=== PATIENT | male | born 1945 | race Caucasian/White ===

== ENCOUNTER 2018-05-27 13:58 | Inpatient (IN) | payer MEDICARE, OTHER | END 2018-06-02 15:30 | disposition designated cancer center or children's hospital (05) | LOC: ER 13:58 → 4TH 15:17 | DX: A41.89 Other specified sepsis (principal); N39.0 Urinary tract infection, site not specified; B96.4 Proteus (mirabilis) (morganii) as the cause of diseases classified elsewhere; I12.0 Hypertensive chronic kidney disease with stage 5 chronic kidney disease or end stage renal disease; N18.6 End stage renal disease; N17.9 Acute kidney failure, unspecified; G20 Parkinson's disease; Z66 Do not resuscitate; D64.9 Anemia, unspecified; E11.9 Type 2 diabetes mellitus without complications; M19.91 Primary osteoarthritis, unspecified site ==

== ENCOUNTER 2018-06-27 12:23 | Inpatient (IN) | payer MEDICARE ==
[~2018-06-27] VITALS: Ht 185.4 cm; Wt 97.5 kg
[~2018-06-27 12:23] MED LIST: ACET325T49 PO; ALLO100T PO; AMAN100T PO; AMLO10TA7 PO; ASCO500C17 PO; ASPI-586 PO; CARB1CAP PO; CHOL10003 PO; DARB25VI SQ; FURO20TA4 PO; GBPN600T PO; HYDR12.56 PO; LABE300T2 PO; MINO2.5T PO; OMEP20CA12 PO; OMEP20TA7 PO; PIOG45TA65 PO; POLY17PO6 PO; SIMV20TA3 PO; SODI650T PO; SPIR50TA4 PO; TRAM50TA2 PO
[2018-06-27 13:05] VITALS: BP 168/90
[2018-06-27] MEDS ORDERED: morphine INJ 4 MG/ML 1 ML (VIAL/SYRINGE) IVP PRN (13:45)
[2018-06-27] MEDS ORDERED: CATHETER FLUSH 10 ML SYR IV PRN (14:00)
--- NOTE | 2018-06-27 14:08 | NUR ---
ROSALIE ALVAREZ I admitted to room 407-1, with an admitting diagnosis of pelvic fx, on 06/27/18 from via cart, accompanied by EMS.ROSALIE ALVAREZ I introduced to surroundings, call light, bed controls, phone, TV, temperature control, lights, meal times, smoking policy, visitor policy, side rail policy, bathrooms and showers. Patient Rights given to patient in the handbook. ROSALIE ALVAREZ I verbalizes understanding that [facility] is not responsible for the loss or damage to any personal effects or valuables that are kept in the patients posession during their hospitalization. The following Patient Care Plans were discussed with the pt: Discharge Planning. ROSALIE ALVAREZ I verbalizes understanding of Interdisciplinary Patient Education. Patient and/or family were informed about the Rapid Response Team and its purpose.
--- NOTE | 2018-06-27 14:23 | NUR ---
UPDATED MED REC WITH MAR FROM [facility]. PATIENT HAS NOT HAD ANY MEDS TODAY, HE REFUSED THEM ALL.
[2018-06-27] MEDS ORDERED: MILK OF MAGNESIA 400 MG/5 ML 30 ML UDC PO PRN (14:45)
[2018-06-27] MEDS ORDERED: ONDANSETRON 4 MG/2 ML (SDV) Z0FRAN IV PRN (14:45)
[2018-06-27] MEDS ORDERED: ANTACID SUSP 30 ML UDC (MYLANTA) PO PRN (14:45)
--- NOTE | 2018-06-27 15:19 | History & Physical-Hospitalist ---
History of Present Illness HPI/Chief Complaint Pt is a 73yoCM known to me from recent admission who was admitted from outside hospital for management of hip fracture. He is confused and unable to provide any history. Family is at bedside who states he fell on 06/25 and was seen in the ER where there was not acute fracture found but a possible old pubis ramus fracture. He was discharged home and continued to worsen with confusion and hip pain. He was brought back to the ER today and imaging revealed an acute right acetabular fracture and an acute right pubis ramus fracture. He was also found to have constipation and an ANAI with a creatinine on 2.45 up from 1.7 when he was last here. He was transferred here for orthopedic evaluation and pain management. Source: family Date Seen 06/27/18 Time Seen by a Provider: 15:19 Attending Physician Jovanni Liao MD PCP Florentino Smith MD Referring Physician Date of Admission Jun 27, 2018 at 13:27 Home Medications & Allergies Home Medications Reviewed patient Home Medication Reconciliation performed by pharmacy medication reconciliations painting technician and/or nursing. Patients Allergies have been reviewed. Allergies Allergies Coded Allergies No Known Drug Allergies (Taxsqccnrh11/29/18) Past Vjapcts-Dmtcmv-Mvgkiz Hx Past Med/Social Hx: Reviewed Nursing Past Med/Soc Hx Patient Social History Employed/Student: retired Alcohol Use: Denies Use Recreational Drug Use: No Smoking Status: Unknown if Ever Smoked Physical Abuse Screen: No Sexual Abuse: No Recent Foreign Travel: No Contact w/other who traveled: No Recent Hopitalizations: No Recent Infectious Disease Expo: No Immunizations Up To Date Date of Pneumonia Vaccine: May 27, 2016 Date of Influenza Vaccine: Feb 17, 2018 Seasonal Allergies Seasonal Allergies: No Past Medical History Cardiac: Hypertension Neurological: Dementia, Parkinson's Disease Genitourinary: Renal Failure Endocrine: Diabetes, Non-Insulin dep History of Blood Disorders: Yes (CHRONIC AMEMIA) Family History Reviewed Nursing Family Hx No Pertinent Family Hx Review of Systems ROS-Unable to Obtain: confusion and dementia Constitutional: see HPI Physical Exam Physical Exam Vital Signs Vital Signs - First Documented 06/27/18 13:05 Temp 98.3 Pulse 71 Resp 20 B/P (MAP) 168/90 Pulse Ox 96 O2 Delivery Nasal Cannula O2 Flow Rate 2.00 Capillary Refill : Less Than 3 Seconds Height, Weight, BMI Height: 6'1.00" Weight: 215lbs. 0.0oz. 97.438318jf; 28.4 BMI Method:Stated General Appearance: Chronically ill HEENT: PERRL/EOMI, Moist Mucous Membranes Neck: Non Tender, Supple Respiratory: Lungs Clear, No Respiratory Distress Cardiovascular: Regular Rate, Rhythm, No Murmur Gastrointestinal: Normal Bowel Sounds, Non Tender, Soft Extremity: No Calf Tenderness, No Pedal Edema Neurologic/Psychiatric: Alert, Disoriented Skin: Normal Color, Warm/Dry Results Results/Procedures Labs Laboratory Tests 06/28/18 06:11 06/29/18 00:45 Patient resulted labs reviewed. Assessment/Plan Admission Diagnosis Right acetabular fracture Admission Status: Inpatient Order (span 2 midnights) Reason for Inpatient Admission: need orthopedic evaluation, IVF for ANAI Diagnosis/Problems Diagnosis/Problems (1) Right acetabular fracture Status: Acute Assessment & Plan: Ortho consulted appreciate recs Discussed with Dr Mcguire who states nonoperative Continue pain management NWB x6 weeks Qualifiers: Encounter type: initial encounter Sublocation of acetabulum: unspecified portion of acetabulum Fracture type: closed (2) Acute renal failure Status: Acute Assessment & Plan: acute on chronic renal failure continue IVF Hold home nephrotoxic drugs Qualifiers: Acute renal failure type: unspecified Qualified Codes: N17.9 - Acute kidney failure, unspecified (3) Parkinson disease Assessment & Plan: Resume home medications (4) Essential (primary) hypertension Assessment & Plan: Return home meds, trend Clinical Quality Measures DVT/VTE Risk/Contraindication: Risk Factor Score Per Nursin RFS Level Per Nursing on Admit: 4+=Very High JOVANNI LIAO MD Jun 27, 2018 15:19
[2018-06-27] MEDS ORDERED: ACET325T38 PO (15:22)
[2018-06-27] MEDS ORDERED: TRAM-42 PO (15:22)
[2018-06-27] MEDS ORDERED: POLY17PO6 PO (15:22)
[2018-06-27] MEDS: NS IV 1000 ML 1,000 ML IV SCH ×2 (15:29→21:09)
[2018-06-27 16:15] VITALS: BP 164/74
[2018-06-27] MEDS ORDERED: NON-FORMULARY MEDICATION 1 EA EA (Amantadine HCl (Amantadine) 100 MG) PO SCH (18:00)
--- NOTE | 2018-06-27 18:10 | CONSULTATION REPORT ---
DATE OF SERVICE: 06/27/2018 INPATIENT CONSULTATION AND REASON FOR CONSULTATION: Right acetabular fracture. HISTORY OF PRESENT ILLNESS: The patient is a 73-year-old gentleman with Parkinson's disease who was transferred from [place] when he was found to have a right acetabular fracture. He is a patient in an assisted living facility and fell on Tuesday. Radiographs at that point were obtained, which revealed an inferior pubic ramus fracture. He was unable to bear weight and then presented again to the Emergency Department today and the patient was found to have a minimally displaced right acetabular fracture, which was felt to be nonoperative. He was admitted for medical issues and likely skilled nursing placement. On exam, the patient's pulses are symmetric distally. No skin lesions noted about the right hip. He has some pain noted with internal and external rotation of the right hip with no gross deformities noted. IMPRESSION: Stable right acetabular fracture. PLAN AND RECOMMENDATIONS: Nonweightbearing right lower extremity. Okay to balance for transfers. Follow up will be with Olivier Reyes in [place] after skilled nursing placement. Thank you for the consultation Job ID: [id number] DocumentID: [id number] Dictated Date: 06/27/2018 15:42:37 Senior Librarian Date: 06/27/2018 18:09:43 Dictated By: KARMA SHAY MD
[2018-06-27] MEDS: AMANTADINE 100 MG (SYMMETREL) CAP PO SCH (18:16)
[2018-06-27 20:02] VITALS: BP 160/71
[2018-06-27] MEDS ORDERED: LABETALOL HCL 300 MG PO SCH (21:00)
[2018-06-27] MEDS ORDERED: [UNRECOGNIZED DRUG - OTHER] PO SCH (21:00)
[2018-06-27] MEDS ORDERED: CARBIDOPA PO SCH (21:00)
[2018-06-27] MEDS ORDERED: LEVODOPA PO SCH (21:00)
[2018-06-27] MEDS: GABAPENTIN 600 MG (NEURONTIN) TAB PO SCH (21:08)
[2018-06-27] MEDS: LABETALOL 200 MG (NORMODYNE) TAB PO SCH (21:08)
[2018-06-27] MEDS: SIMvastatin 20 MG (ZOCOR) TAB PO SCH (21:08)
[2018-06-27] MEDS: SINEMET CR 50/200 (CARBIDOPA/LEVODOPA SA) TAB PO SCH (21:08)
[2018-06-27] MEDS: SODIUM BICARBONATE 650 MG TABLET (NON-FORMULARY) PO SCH (21:08)
[2018-06-27] MEDS: HYDROcodone/APAP 5 MG/325 MG (LORTAB) TAB PO PRN (21:08)
[2018-06-28 00:35] VITALS: BP 160/72
[2018-06-28 04:21] VITALS: BP 157/77
[2018-06-28] MEDS: NS IV 1000 ML 1,000 ML IV SCH (06:17)
[2018-06-28 06:28] LABS: BASOPHILS % (AUTO) 0 % (0-10); EOSINOPHILS # (AUTO) 0.1 10^3/uL (0.0-0.3); EOSINOPHILS % (AUTO) 2 % (0-10); LYMPHOCYTES # (AUTO) 0.5 X 10^3 (1.0-4.0); LYMPHOCYTES % (AUTO) 12 % (12-44); MEAN CORPUSCULAR HGB CONC 32 G/DL (32-36); MEAN CORPUSCULAR VOLUME 100 FL (80-99); MEAN PLATELET VOLUME 10.2 FL (7.4-10.4); MONOCYTES # (AUTO) 0.4 X 10^3 (0.0-1.0); MONOCYTES % (AUTO) 10 % (0-12); NEUTROPHILS # (AUTO) 3.5 X 10^3 (1.8-7.8); NEUTROPHILS % (AUTO) 77 % (42-75); RED CELL DISTRIBUTION WIDTH 15.2 % (10.0-14.5)
[2018-06-28 06:45] LABS: HEMATOCRIT 25 % (40-54); MEAN CORPUSCULAR HEMOGLOBIN 32 PG (25-34); PLATELET COUNT 96 10^3/uL (130-400); WHITE BLOOD COUNT 5.1 10^3/uL (4.3-11.0)
[2018-06-28 06:53] LABS: CALCIUM 9.1 MG/DL (8.5-10.1); CREATININE SERUM 1.98 MG/DL (0.60-1.30)
[2018-06-28 08:37] VITALS: BP 179/74
[2018-06-28] MEDS: GABAPENTIN 600 MG (NEURONTIN) TAB PO SCH ×2 (08:54→21:00)
[2018-06-28] MEDS: SODIUM BICARBONATE 650 MG TABLET (NON-FORMULARY) PO SCH ×2 (08:54→21:00)
[2018-06-28] MEDS: ALLOPURINOL 100 MG (ZYLOPRIM) TAB PO SCH (08:54)
[2018-06-28] MEDS: amLODIPine 10 MG (NORVASC) TAB PO SCH (08:54)
[2018-06-28] MEDS: LABETALOL 200 MG (NORMODYNE) TAB PO SCH ×2 (08:54→21:00)
[2018-06-28] MEDS: SINEMET CR 50/200 (CARBIDOPA/LEVODOPA SA) TAB PO SCH ×2 (08:54→21:00)
[2018-06-28] MEDS: AMANTADINE 100 MG (SYMMETREL) CAP PO SCH ×2 (08:54→18:02)
[2018-06-28] MEDS: ACETAMINOPHEN 325 MG TABLET PO PRN (08:55)
[2018-06-28] MEDS ORDERED: NON-FORMULARY MEDICATION 1 EA EA (Allopurinol 100 MG) PO SCH (09:00)
[2018-06-28] MEDS ORDERED: NON-FORMULARY MEDICATION 1 EA EA (Amlodipine Besylate 10 MG) PO SCH (09:00)
--- NOTE | 2018-06-28 09:06 | Progress Note-Hospitalist ---
Subjective HPI/CC On Admission Date Seen by Provider: Jun 28, 2018 Time Seen by Provider: 09:01 Pt is a 73yoCM known to me from recent admission who was admitted from outside hospital for management of hip fracture. He is confused and unable to provide any history. Family is at bedside who states he fell on 06/25 and was seen in the ER where there was not acute fracture found but a possible old pubis ramus fracture. He was discharged home and continued to worsen with confusion and hip pain. He was brought back to the ER today and imaging revealed an acute right acetabular fracture and an acute right pubis ramus fracture. He was also found to have constipation and an ANAI with a creatinine on 2.45 up from 1.7 when he was last here. He was transferred here for orthopedic evaluation and pain management. Subjective/Events-last exam Pt is lining in bed. Moaning incoherently. When asked about pain he states "I wouldn't know." Focused Exam Lactate Level 06/29/18 00:45: Lactic Acid Level 0.39L Objective Exam Vital Signs Vital Signs Date Time Temp Pulse Resp B/P (MAP) Pulse Ox O2 Delivery O2 Flow Rate FiO2 06/29/18 11:36 99.3 73 20 138/65 (89) 93 Nasal Cannula 2.00 Capillary Refill : Less Than 3 Seconds General Appearance: Chronically ill Respiratory: Lungs Clear, No Respiratory Distress Gastrointestinal: Normal Bowel Sounds, Non Tender, Soft Neurologic/Psychiatric: Alert, Disoriented Results/Procedures Lab Laboratory Tests 06/29/18 00:45 Patient resulted labs reviewed. Assessment/Plan Assessment and Plan Assess & Plan/Chief Complaint Right acetabular fracture with pubis ramus fracture Diagnosis/Problems Diagnosis/Problems (1) Right acetabular fracture Status: Acute Assessment & Plan: Ortho consulted appreciate recs Discussed with Dr Mcguire who states nonoperative Continue pain management RLE NWB PT/OT consulted Will need NH placement Qualifiers: Encounter type: initial encounter Sublocation of acetabulum: unspecified portion of acetabulum Fracture type: closed (2) Acute renal failure Status: Acute Assessment & Plan: Improving, continue IVF Qualifiers: Acute renal failure type: unspecified Qualified Codes: N17.9 - Acute kidney failure, unspecified (3) Parkinson disease Assessment & Plan: Resume home medications (4) Essential (primary) hypertension Assessment & Plan: Resume home meds, trend Mildly elevated overnight Clinical Quality Measures DVT/VTE Risk/Contraindication: Risk Factor Score Per Nursin RFS Level Per Nursing on Admit: 4+=Very High JOVANNI SANTANA MD Jun 28, 2018 09:06
[2018-06-28] MEDS ORDERED: fentaNYL PATCH 25 MCG (DURAGESIC) TD SCH (09:30)
--- NOTE | 2018-06-28 10:23 | NUR ---
CM/SS referral sent to [facility] (Tamiko Torres), they will review and let know. Message was left for the son (Shorty Cummingsnicholas Fernandez, ).
--- NOTE | 2018-06-28 10:52 | Diagnostic Imaging Report ---
EXAMINATION: Portable erect AP chest at 0956 hours. INDICATION: Fever, confusion. COMPARISON: There are no prior studies available for comparison. FINDINGS: The heart is enlarged. There is a vague nodular area of increased density in the right perihilar region. This finding may be secondary to pneumonia/atelectasis. The possibility that there is an underlying neoplastic process would be less likely but should still be considered. A followup chest exam would be recommended for continued evaluation. The lungs are otherwise generally clear. There is no pleural effusion identified. The mediastinum is not widened. The osseous structures are intact. IMPRESSION: 1. The nodular density in the right perihilar region may well be secondary to pneumonia/atelectasis alone. The possibility that there is an underlying neoplastic process present should still be considered. Recommendations as above. 2. There is no acute cardiopulmonary abnormality noted otherwise. 3. There is cardiomegaly. Dictated by: Dictated on workstation # [id number]
--- NOTE | 2018-06-28 10:53 | NUR ---
Palliative Care RN in to see patient. He was working with therapy at the time, getting a bath. Will attempt to see later today. Hopefully family will be present.
[2018-06-28 11:18] VITALS: BP 143/62
[2018-06-28] MEDS: 1/2 NS IV SOLUTION 1,000 ML IV SCH ×2 (11:47→21:01)
[2018-06-28] MEDS: MINOXIDIL 2.5 MG PO SCH ×2 (11:47→21:00)
--- NOTE | 2018-06-28 14:04 | Physical Therapy Evaluation ---
PT Evaluation-General Medical Diagnosis Admission Date Jun 27, 2018 at 13:27 Medical Diagnosis: R acetabular fx, R pubic fx Onset Date: Jun 27, 2018 Therapy Diagnosis Therapy Diagnosis: weakness Height/Weight Height (Feet): 6 Height (Inches): 1.00 Weight (Pounds): 215 Weight (Ounces): 0.0 Precautions Precautions/Isolations: Fall Prevention, Standard Precautions Weight Bear Status Right Lower Extremity: Right Non Weight Bearing Left Lower Extremity: Left Weight Bearing/Tolerated Referral Physician: Yanni Reason for Referral: Evaluation/Treatment Medical History Pertinent Medical History: DM, HTN, OA, Parkinson's, Renal Insufficiency Additional Medical History Dementia, PD Current History Pt sustained a fall and has a right acetabular fx and right pubic fx Reviewed History: Yes Social History Home: Assisted Living Current Living Status: Prior/Core FIM Prior Level of Function Therapy Code Descriptions/Definitions Functional [place] Measure: 0=Not Assessed/NA 4=Minimal Assistance 1=Total Assistance 5=Supervision or Setup 2=Maximal Assistance 6=Modified [place] 3=Moderate Assistance 7=Complete [place] Therapy Quality Codes: 6 Independent with activity with or without an assistive device 5 Patient requires set up or clean up by helper. Patient completes activity by themselves 4 Supervision or touching assist (CGA). [place] provide cues , steadying assist 3 The helper provides less than half the effort to complete the activity 2 The helper provides more than half the effort to complete the activity 1 Dependent. The helper does all the effort to complete an activity 7 Patient refused to complete or attempt activity 9 The patient did not perform the activity before the current illness or injury 88 Not attempted due to Medical conditions or safety concerns Functional Abilities and Goals: Independent: Patient completed the activities by him/herself, with or without an assistive device, with no assistance from a helper. Needed Some Help: Patient needed partial assistance from another person to complete activities. Dependent: A helper completed the activities for the patient. Unknown: Not Applicable: Unsure of his PLOF; PMH indicates he was living at an [facility]; pt unable to provide report; it is felt that he was likely ambulatory PT Evaluation-Current Subjective Pt agrees to PT. Follows cues. Pain Numeric Pain Scale: 8 Location: Right Location Body Site: Hip Comment: FLACC scale; cries out Objective Patient Orientation: Confused Problem Solving: Fair Attachments: Villalobos Catheter, IV ROM/Strength ROM Lower Extremities WFL AAROM Strength Lower Extremities strength NT Integumentary/Posture Integumentary Refer to nursing notes. Posture rounded shoulders. Neuromuscular (Tone, Coordination, Reflexes) NT Sensory Vision: Functional Hearing: Functional Transfers Therapy Code Descriptions/Definitions Functional [place] Measure: 0=Not Assessed/NA 4=Minimal Assistance 1=Total Assistance 5=Supervision or Setup 2=Maximal Assistance 6=Modified [place] 3=Moderate Assistance 7=Complete [place] Transfers (B, C, W/C) (FIM): 1 (asssit of 2 due to pain, confusion and decreased awareness. ) Supine to/from Sit: 1 Pt is assist of 2 for all transfers and to sit EOB. He does follow cues and initiates activity once started by this therapist. Cooperative. Balance Sitting Static: Fair Sitting Dynamic: Fair Special Test Comments Pt sat EOB with min assist. Treatment Sat EOB. Pt requires assist to sit but able to help. Changed his clothing and wiped his skin down. Back to bed after treatment with SCD's in place and heels elevated. Nurse aide present and assisting with pt to eat. Assessment/Needs Post above diagnosis. Pt will beneift from bed mobility and transfer training to promote optimal funcitonal mobility and activity to progress to transfers and eventually ambulataion as WB allows. Rehab Potential: Guarded PT Detention Goals Cement Finishing Supervisor Goals PT Cement Finishing Supervisor Goals Time Frame: Jul 05, 2018 Transfers (B,C,W/C) (FIM): 3 PT Plan Problem List Problem List: Activity Tolerance, Functional Strength, Safety, Balance, Gait, Transfer, Bed Mobility Treatment/Plan Treatment Plan: Continue Plan of Care Treatment Plan: Bed Mobility, Education, Functional Activity Elizabet, Functional Strength, Gait, Safety, Therapeutic Exercise, Transfers Treatment Duration: Jul 05, 2018 Frequency: 6 times per week Estimated Hrs Per Day: .5 hour per day Patient and/or Family Agrees t: Yes Safety Risks/Education Patient Education: Transfer Techniques, Safety Issues Teaching Recipient: Patient Teaching Methods: Discussion Response to Teaching: Reinforcement Needed Discharge Recommendations Therapy D/C Recommendations: Usp (TCU/NH) (PT) Time/GCodes Time In: 1035 Time Out: 1100 Total Billed Treatment Time: 25 Total Billed Treatment visit EVM 25 FARZANA GOYAL PT Jun 28, 2018 14:04
--- NOTE | 2018-06-28 14:13 | NUR ---
CM/SS spoke with Tamiko at [facility] and she has arrangements for the son to pay the outstanding bill owed to them before they can accept for SNF. Tamiko was out of the office at this time and would let this jingle writer know in the morning if they would accept.
[2018-06-28 14:29] LABS: BILIRUBIN,URINE NEGATIVE (NEGATIVE); CLARITY,URINE CLEAR; COLOR,URINE YELLOW; GLUCOSE, URINE (UA) NEGATIVE (NEGATIVE); KETONES,URINE NEGATIVE (NEGATIVE); LEUKOCYTE ESTERASE ,URINE NEGATIVE (NEGATIVE); NITRITE,URINE NEGATIVE (NEGATIVE); PH,URINE 5 (5-9); PROTEIN,URINE NEGATIVE (NEGATIVE); UROBILINOGEN,URINE NORMAL (NORMAL)
--- NOTE | 2018-06-28 14:40 | ST Dysphagia Evaluation ---
Speech Evaluation-General Medical Diagnosis R acetabular fx, R pubic fx Onset Date: Jun 27, 2018 Therapy Diagnosis Therapy Diagnosis: Oropharyngeal Dysphagia Precautions Precautions: Aspiration Precautions/Isolations: Fall Prevention, Standard Precautions Medical History Pertinent Medical History: DM, HTN, OA, Parkinson's, Renal Insufficiency Reviewed History: Yes Social History Current Living Status: Speech PLF/Current-Dysphagia Prior Level of Function Patient was eating most anything he wanted prior to hospital admission. Subjective Patient was resting when I entered the room, however he alerted to his name and was able to participate in the Bedside Dysphagia Evaluation. Cognitive Status Patient Orientation: Person Oral Motor Skills Dentition: Natural, Tumbled, Stained Ability to Follow Directions: Fair Voice Voice Phonatory-Based Quality: Hoarse Voice Pitch: Normal Voice Loudness: Normal Face Facial Symmetry: Symmetrical Oral-Facial Assessment Oral-Facial Dentition: Normal Smile: Poor Coordination Puff Cheeks: Reduced Strength Lingual Protrusion: Abnormal Lingual ROM: Abnormal Lingual Strength: Abnormal Pharynx Velopharyngeal Move.: Normal Volitional Dry Swallow: Yes Voluntary Cough: Yes Dysphagia Evaluation Consistencies Presented: Thin Liquid, Mechanical Soft, Pureed Oral Phase: Oral Residue, Reduced Oral Transit Pharyngeal Phase: Decreased A/P Bolus Transit Dietary Recommendations: Mechanical Soft Liquid Recommendations: Thin Swallowing Precautions: Alternate Liquids/Solids, Liquids from Straw, Small Bites and Sips, Sitting Upright 90 Degrees, Sitting 90 Degrees 30 Post Intake Dysphagia Evaluation Summary Patient is a 73 year old male who was admitted to the hospital due to a pelvic fracture. Patient was referred to for a Bedside Dysphagia Evaluation which was completed this afternoon. Patient presents with few natural teeth which appear to be in very poor condition. Patient was given consistencies of puree, mechanical soft and thin liquids with tolerance of all. Patient exhibited mild oral residue and slight A-P transfer of bolus. Pharyngeal elevation was functional for presented textures. Dysphagia II diet level is the most appropriate at this time. Nursing notified for diet order. Barriers to Learning Patient has decreased cognition at times due to medical status. Speech Short Term Goals Short Term Goals Short Term Goals 1) Patient will tolerate least restrictive diet level 90% or greater intake w/o s/s of aspiration. 2) Patient will utilize compensatory strategies as trained with 90% or greater function. Speech Aircraft Maintenance Director Goals Aircraft Maintenance Director Goals Patient will maintain adequate nutrition/hydration via safe effective swallow function. Speech-Plan Patient/Family Goals Patient/Family Goals: Patient will return home with family support post discharge. Treatment Plan Speech Therapy Treatment Plan: Continue Plan of Care Patient is to receive skilled ST for dysphagia therapy. Treatment Duration: Jun 30, 2018 Frequency: 5 times per week Estimated Hrs Per Day: .25 hour per day Rehab Potential: Guarded Barriers to Learning: Patient has decreased cognitive function due to medical status. Pt/Family Agrees to Plan: Yes Safety Risks/Education Teaching Recipient: Patient Teaching Methods: Discussion Response to Teaching: Verbalize Understanding Education Topics Provided: Safety strategies for oral intake. Time Speech Therapy Time In: 14:00 Speech Therapy Time Out: 14:15 Total Billed Time: 15 Billed Treatment Time 1, MARKOS Souza Jun 28, 2018 14:40
[2018-06-28 14:53] LABS: BACTERIA,URINE NEGATIVE /HPF; SQUAMOUS EPITHELIAL CELL,UR RARE /HPF
--- NOTE | 2018-06-28 15:00 | NUR ---
attempted visit, pt was asleep.
--- NOTE | 2018-06-28 16:04 | Occupational Therapy Eval ---
OT Evaluation-General/PLF Medical Diagnosis Admission Date Jun 27, 2018 at 13:27 Medical Diagnosis: R acetabular fx, R pubic fx Onset Date: Jun 27, 2018 Therapy Diagnosis Therapy Diagnosis: Weakness Height/Weight Height (Feet): 6 Height (Inches): 1.00 Weight (Pounds): 215 Weight (Ounces): 0.0 Precautions Precautions/Isolations: Fall Prevention, Standard Precautions Safety Interventions: Bed Exit Alarm, Reorient-Attempt, Reorient-PRN Weight Bear Status Weight Bearing Restriction: Non Weight Bearing, Partial Weight Bearing Location Restriction: L LE, R LE Referral Physician: Yanni Referral Reason: Activity Tolerance, Self Care, Evaluation/Treatment, Strengthening/ROM Medical History Pertinent Medical History: DM, Dementia, HTN, OA, Parkinson's, Renal Insufficiency Additional Medical History Parkinsons, renal failure,, DM Non insulin dependent , anemia, sepsis, Ess. HTN Current History Pt had a fall & sustained Fracture Right Acetabulum & Rt Pubic fracture. Pt disoriented & confused & not in a state of communication. Reviewed History: Yes Social History Home: Assisted Living Current Living Status: Spouse ADL-Prior Level of Function Therapy Code Descriptions/Definitions Functional [place] Measure: 0=Not Assessed/NA 4=Minimal Assistance 1=Total Assistance 5=Supervision or Setup 2=Maximal Assistance 6=Modified [place] 3=Moderate Assistance 7=Complete [place] Therapy Quality Codes: 6 Independent with activity with or without an assistive device 5 Patient requires set up or clean up by helper. Patient completes activity by themselves 4 Supervision or touching assist (CGA). [place] provide cues , steadying assist 3 The helper provides less than half the effort to complete the activity 2 The helper provides more than half the effort to complete the activity 1 Dependent. The helper does all the effort to complete an activity 7 Patient refused to complete or attempt activity 9 The patient did not perform the activity before the current illness or injury 88 Not attempted due to Medical conditions or safety concerns Functional Abilities and Goals: Independent: Patient completed the activities by him/herself, with or without an assistive device, with no assistance from a helper. Needed Some Help: Patient needed partial assistance from another person to complete activities. Dependent: A helper completed the activities for the patient. Unknown: Not Applicable: ADL PLOF Comments Pt confused & unable to provide history. Pt fell on 06/25/18 & been admitted to ER for pain management . Pt was living at home with his . Self Care: Unknown Functional Cognition: Dependent Drive Self: No OT Current Status Subjective Pt in bed with O2 dependent, Foleys catheter . Pt confused . Pt in pain but could'nt rated pain. Mental Status/Objective Patient Orientation: Confused, Mumbles Attachments: Villalobos Catheter, IV Current Hand Dominance: Right Upper Extremity ROM WFL Upper Extremity Coordination Jerky movements in both arms ADL-Treatment ADL-Current Pt max A in bed mobillty & func transfers, Max A in all self care tasks MS in BUE 3+/5 grossly graded. Therapy Code Descriptions/Definitions Functional [place] Measure: 0=Not Assessed/NA 4=Minimal Assistance 1=Total Assistance 5=Supervision or Setup 2=Maximal Assistance 6=Modified [place] 3=Moderate Assistance 7=Complete [place] Therapy Quality Codes: 6 Independent with activity with or without an assistive device 5 Patient requires set up or clean up by helper. Patient completes activity by themselves 4 Supervision or touching assist (CGA). [place] provide cues , steadying assist 3 The helper provides less than half the effort to complete the activity 2 The helper provides more than half the effort to complete the activity 1 Dependent. The helper does all the effort to complete an activity 7 Patient refused to complete or attempt activity 9 The patient did not perform the activity before the current illness or injury 88 Not attempted due to Medical conditions or safety concerns Eating (FIM): 2 Grooming (FIM): 1 Bathing (FIM): 0 Upper Body Dressing (FIM): 0 Lower Body Dressing (FIM): 0 Toileting (FIM): 0 Transfers (B, C, W/C) (FIM): 1 Toilet/Commode Transfer (FIM): 1 Tub Transfer (FIM): 0 Shower Transfer (FIM): 0 Education OT Patient Education: Correct positioning, Safety issues Teaching Recipient: Patient Teaching Methods: Demonstration Response to Teaching: Unable to Comprehend OT Short Term Goals Short Term Goals Time Frame: Jul 12, 2018 Eating(FIM): 4 Grooming(FIM): 4 Upper Body Dressing(FIM): 3 Lower Body Dressing(FIM): 1 Toileting(FIM): 3 Transfers (B,C,W/C) (FIM): 3 Toilet/Commode Transfer(FIM): 3 Shower Transfer(FIM): 3 Additional Short Term Goals: 1-Demonstrate ADL Tasks, 2-Verbalize Understanding , 3-ImproveStrength/Elizabet 1=Demonstrate adherence to instructed precautions during ADL tasks. 2=Patient will verbalize/demonstrate understanding of assistive devices/ modifications for ADL. 3=Patient will improve strength/tolerance for activity to enable patient to perform ADL's. OT Home Health Billing Specialist Goals Home Health Billing Specialist Goals Time Frame: Aug 23, 2018 Eating (FIM): 5 Grooming(FIM): 5 Bathing Location: L Arm, R Arm, L Upper Leg, R Upper Leg, L Lower Leg ( including foot), R Lower Leg (including foot), Chest, Abdomen Upper Body Dressing(FIM): 4 Lower Body Dressing(FIM): 3 Toileting(FIM): 5 Transfers (B,C,W/C) (FIM): 4 Toilet/Commode Transfer(FIM): 4 Shower Transfer(FIM): 4 Additional Goals: 1-Demonstrate ADL Tasks, 2-Verbalize Understanding, 3- ImproveStrength/Elizabet 1=Demonstrate adherence to instructed precautions during ADL tasks. 2=Patient will verbalize/demonstrate understanding of assistive devices/ modifications for ADL. 3=Patient will improve strength/tolerance for activity to enable patient to perform ADL's. OT Education/Plan Problem List/Assessment Assessment: Decreased Activ Tolerance, Decreased Safety Aware, Decreased UE Strength, Dependent Transfers, Impaired Bed Mobility, Impaired Cognition, Impaired Funct Balance, Impaired Self-Care Skills, Restricted Funct UE ROM Discharge Recommendations Plan/Recommendations: Continue POC Therapy D/C Recommendations: Home w/ Family Support, Occupational Therapy Home Care Equpiment Recommendations-D/C: Bath Chair, Extended Shower Sprayer, Area Safety Manager Patient/Family Goals To return home Independently with AD. Treatment Plan/Plan of Care Treatment,Training & Education: Yes Patient would benefit from OT for education, treatment and training to promote independence in ADL's, mobility, safety and/or upper extremity function for ADL' s. Plan of Care: ADL Retraining, Caregiver Training, Cognitive Retraining, Functional Mobility, UE Funct Exercise/Act, UE Neuromus Re-Ed/Coord Treatment Duration: Jul 26, 2018 Frequency: 5 times per week Estimated Hrs Per Day: .25 hour per day Rehab Potential: Guarded Time/GCodes Start Time: 14:45 Stop Time: 15:15 Total Time Billed (hr/min): 30 Billed Treatment Time 1, EVM 20 min, Ex 10 min. Total 30 min DINH SAMANIEGO OT Jun 28, 2018 16:04
[2018-06-28 16:55] VITALS: BP 157/69
[2018-06-28 19:41] VITALS: BP 158/73
[2018-06-28] MEDS: SIMvastatin 20 MG (ZOCOR) TAB PO SCH (21:00)
[2018-06-29] VITALS: BP 167/72
[2018-06-29] MEDS: ACETAMINOPHEN 325 MG TABLET PO PRN (00:01)
[2018-06-29 00:56] LABS: BASOPHILS % (AUTO) 0 % (0-10); EOSINOPHILS # (AUTO) 0.1 10^3/uL (0.0-0.3); EOSINOPHILS % (AUTO) 1 % (0-10); HEMATOCRIT 24 % (40-54); HEMOGLOBIN 7.5 G/DL (13.3-17.7); LYMPHOCYTES # (AUTO) 0.6 X 10^3 (1.0-4.0); LYMPHOCYTES % (AUTO) 14 % (12-44); MEAN CORPUSCULAR HEMOGLOBIN 31 PG (25-34); MEAN CORPUSCULAR HGB CONC 31 G/DL (32-36); MEAN CORPUSCULAR VOLUME 100 FL (80-99); MEAN PLATELET VOLUME 11.5 FL (7.4-10.4); MONOCYTES # (AUTO) 0.4 X 10^3 (0.0-1.0); MONOCYTES % (AUTO) 10 % (0-12); NEUTROPHILS # (AUTO) 3.2 X 10^3 (1.8-7.8); NEUTROPHILS % (AUTO) 74 % (42-75); PLATELET COUNT 86 10^3/uL (130-400); RED CELL DISTRIBUTION WIDTH 14.9 % (10.0-14.5); WHITE BLOOD COUNT 4.4 10^3/uL (4.3-11.0)
--- NOTE | 2018-06-29 01:17 | NUR ---
0000-VITAL SIGNS AT THIS TIME ARE TEMP-105.5, BP-167/72, P-79, R-20, O2-92% ON 2 LITERS NC. ICE PACKS WERE APPLIED, TYLENOL WAS GIVEN. 0008-SPOKE WITH DR. BONILLA AND INFORMED HIM OF PTS CONDITION. TELEPHONE ORDERS RECEIVED FOR BLOOD CULTURES X2, LACTIC ACID AND CBC STAT. 0100-PTS TEMP IS CURRENTLY 99.6. WILL CONTINUE TO MONITOR PT.
[2018-06-29 04:02] VITALS: BP 143/64
[2018-06-29] MEDS: 1/2 NS IV SOLUTION 1,000 ML IV SCH ×2 (07:07→17:21)
[2018-06-29 08:08] VITALS: BP 166/72
[2018-06-29] MEDS ORDERED: AZITHROMYCIN 250 MG TAB (ZITHROMAX) PO NR (08:15)
--- NOTE | 2018-06-29 08:34 | Progress Note-Hospitalist ---
Subjective HPI/CC On Admission Date Seen by Provider: Jun 29, 2018 Time Seen by Provider: 08:26 Pt is a 73yoCM known to me from recent admission who was admitted from outside hospital for management of hip fracture. He is confused and unable to provide any history. Family is at bedside who states he fell on 06/25 and was seen in the ER where there was not acute fracture found but a possible old pubis ramus fracture. He was discharged home and continued to worsen with confusion and hip pain. He was brought back to the ER today and imaging revealed an acute right acetabular fracture and an acute right pubis ramus fracture. He was also found to have constipation and an ANAI with a creatinine on 2.45 up from 1.7 when he was last here. He was transferred here for orthopedic evaluation and pain management. Subjective/Events-last exam Pt reports feeling better today. Pain improved. Discussed with Rn and pt developed fever overnight but has since defervesced. Focused Exam Lactate Level 06/29/18 00:45: Lactic Acid Level 0.39L Objective Exam Vital Signs Vital Signs Date Time Temp Pulse Resp B/P (MAP) Pulse Ox O2 Delivery O2 Flow Rate FiO2 06/29/18 11:36 99.3 73 20 138/65 (89) 93 Nasal Cannula 2.00 Capillary Refill : Less Than 3 Seconds General Appearance: No Apparent Distress, Chronically ill Respiratory: Lungs Clear, No Respiratory Distress Cardiovascular: Regular Rate, Rhythm, No Murmur Neurologic/Psychiatric: Alert, Other (oriented to self, place, and major details today) Results/Procedures Lab Laboratory Tests 06/29/18 00:45 Patient resulted labs reviewed. Assessment/Plan Assessment and Plan Assess & Plan/Chief Complaint Right acetabular fracture with pubis ramus fracture Diagnosis/Problems Diagnosis/Problems (1) Right acetabular fracture Status: Acute Assessment & Plan: Ortho consulted appreciate recs Discussed with Dr Mcguire who states nonoperative Continue pain management RLE NWB PT/OT consulted Will need NH placement Qualifiers: Encounter type: initial encounter Sublocation of acetabulum: unspecified portion of acetabulum Fracture type: closed (2) Fever Assessment & Plan: One time fever of 105 overnight Blood cultures ordered overnight CXR reveals possible infiltrate Will start on CAP coverage Qualifiers: Encounter type: initial encounter (3) Acute renal failure Status: Acute Assessment & Plan: Improving, continue IVF Qualifiers: Acute renal failure type: unspecified Qualified Codes: N17.9 - Acute kidney failure, unspecified (4) Parkinson disease Assessment & Plan: Continue on home meds (5) Essential (primary) hypertension Assessment & Plan: Resume home meds, trend Mildly elevated overnight Clinical Quality Measures DVT/VTE Risk/Contraindication: Risk Factor Score Per Nursin RFS Level Per Nursing on Admit: 4+=Very High JOVANNI SANTANA MD Jun 29, 2018 08:34
[2018-06-29] MEDS: SODIUM BICARBONATE 650 MG TABLET (NON-FORMULARY) PO SCH ×2 (08:43→21:12)
[2018-06-29] MEDS: AMANTADINE 100 MG (SYMMETREL) CAP PO SCH ×2 (08:43→17:21)
[2018-06-29] MEDS: amLODIPine 10 MG (NORVASC) TAB PO SCH (08:43)
[2018-06-29] MEDS: MINOXIDIL 2.5 MG PO SCH ×2 (08:43→21:01)
[2018-06-29] MEDS: GABAPENTIN 600 MG (NEURONTIN) TAB PO SCH ×2 (08:43→21:00)
[2018-06-29] MEDS: cefTRIAXone FOR IV USE 1,000 MG in NS (IVPB) 50 ML IV SCH (08:43)
[2018-06-29] MEDS: SINEMET CR 50/200 (CARBIDOPA/LEVODOPA SA) TAB PO SCH ×2 (08:43→21:01)
[2018-06-29] MEDS: ALLOPURINOL 100 MG (ZYLOPRIM) TAB PO SCH (08:43)
[2018-06-29] MEDS: LABETALOL 200 MG (NORMODYNE) TAB PO SCH ×2 (08:44→21:01)
--- NOTE | 2018-06-29 09:49 | NUR ---
CM/SS spoke with the patient and administration from [facility] that was here to visit the patient. [facility] is also considering taking the patient back to their facility, they are talking with Shorty (son) and will let this writer producer know. Discussed that discharge to a facility could likely be 2/.
--- NOTE | 2018-06-29 10:37 | NUR ---
CM/NGHIA Shorty (patient's son) called this movie writer. He stated that he did not think that the assisted living facility was going to be option for his father and that the was meeting with [facility] at 3:30pm this day to resolve the outstanding bill his father has there. [facility] has accepted the patient and could transport on 06/30 at 11am if patient is able to discharge.
--- NOTE | 2018-06-29 11:23 | Physical Therapy Daily Note ---
PT Daily Note-Current Subjective Pt was in bed and reports "he was just getting warm and his pain had just calmed down." PT explained he need to sit EOB so he would not get pneumonia. Pain Numeric Pain Scale: 10-Worst Possible Pain Location: Right Location Body Site: Hip Pain Description: Stabbing, Sharp Comment: Pt reports that it comes and goes. Mental Status Patient Orientation: Person Attachments: SCD's, Oxygen (1L), Villalobos Catheter, IV Transfers Therapy Code Descriptions/Definitions Functional [place] Measure: 0=Not Assessed/NA 4=Minimal Assistance 1=Total Assistance 5=Supervision or Setup 2=Maximal Assistance 6=Modified [place] 3=Moderate Assistance 7=Complete [place] Therapy Quality Codes: 6 Independent with activity with or without an assistive device 5 Patient requires set up or clean up by helper. Patient completes activity by themselves 4 Supervision or touching assist (CGA). [place] provide cues , steadying assist 3 The helper provides less than half the effort to complete the activity 2 The helper provides more than half the effort to complete the activity 1 Dependent. The helper does all the effort to complete an activity 7 Patient refused to complete or attempt activity 9 The patient did not perform the activity before the current illness or injury 88 Not attempted due to Medical conditions or safety concerns Transfers (B, C, W/C) (FIM): 2 Scootin Supine to/from Sit: 2 Weight Bearing Right Lower Extremity: Right Non Weight Bearing Left Lower Extremity: Left Weight Bearing/Tolerated Exercises Supine Ex: Ankle pumps, Heel Slides (LLE only) Supine Reps: 10 Assessment Current Status: Poor Progress Pt was very resistive to any movement. Pt was able to perform BLE AP while supine in bed. Pt performed HS on LLE. Pt required max A x2 to get from supine to EOB with one managing LE and one managing trunk. Pt stated "he wants to go slow and steady, at his own pace." Pt yells out in pain at times. Pt was argumentative while sitting EOB on how to maintain upright balance. He needed min A-SBA maintaining sitting balance. Pt required VC to keep feet on floor and where to place hands. Pt returned supine in bed and was able to move LE with min A. Pt has all needs met. PT recommends prema lift when he possibly tranfers to SNF. PT Short Term Goals Short Term Goals Transfers (B,C,W/C) (FIM): 3 PT Snf Goals Horticulture/Floriculture Teacher Goals PT Snf Goals Time Frame: Jul 05, 2018 Transfers (B,C,W/C) (FIM): 3 PT Plan Problem List Problem List: Activity Tolerance, Functional Strength, Safety, Balance, Gait, Transfer, Bed Mobility, ROM Treatment/Plan Treatment Plan: Continue Plan of Care Treatment Plan: Bed Mobility, Education, Functional Activity Elizabet, Functional Strength, Gait, Safety, Therapeutic Exercise, Transfers Treatment Duration: Jul 05, 2018 Frequency: 6 times per week Estimated Hrs Per Day: .5 hour per day Patient and/or Family Agrees t: Yes Time/GCodes Time In: 1015 Time Out: 1038 Total Billed Treatment Time: 23 Total Billed Treatment 1 visit FA x2 23 min JOSEPH PATRICIO PT Jun 29, 2018 11:22
[2018-06-29 11:36] VITALS: BP 138/65
--- NOTE | 2018-06-29 11:40 | Occupational Ther Daily Note ---
OT Current Status-Daily Note Subjective Pt alert, lying in bed. Pt confused and rambles. Mental Status/Objective Patient Orientation: Person, Confused Therapy Code Descriptions/Definitions Functional [place] Measure: 0=Not Assessed/NA 4=Minimal Assistance 1=Total Assistance 5=Supervision or Setup 2=Maximal Assistance 6=Modified [place] 3=Moderate Assistance 7=Complete [place] ADL-Treatment Pt agrees to complete grooming. Pt given supplies and attempts to complete set up. Pt unable to squeeze toothpaste tube. Assist to apply toothpaste. Pt then was able to complete brushing teeth and washing face. Pt unable to reach to bed table to get water. When water was given to pt, able to bring to mouth and get a drink. Attempted to encourage pt to sit up in recliner with assist of nrsg. Pt adamantly refused to move. Would not allow bed to be placed in chair position and cried out if bed moved. After therapy, pt lying in bed with call light/phone in reach. All needs met in room. OT Short Term Goals Short Term Goals Time Frame: Jul 12, 2018 Eating(FIM): 4 Grooming(FIM): 4 Transfers (B,C,W/C) (FIM): 3 Toilet/Commode Transfer(FIM): 3 Additional Short Term Goals: 2-Verbalize Understanding, 3-ImproveStrength/Elizabet 1=Demonstrate adherence to instructed precautions during ADL tasks. 2=Patient will verbalize/demonstrate understanding of assistive devices/ modifications for ADL. 3=Patient will improve strength/tolerance for activity to enable patient to perform ADL's. OT Halfway Goals Executive Business Coach Goals Time Frame: Jul 26, 2018 Eating (FIM): 5 Grooming(FIM): 5 Transfers (B,C,W/C) (FIM): 4 Toilet/Commode Transfer(FIM): 4 Additional Goals: 1-Demonstrate ADL Tasks, 2-Verbalize Understanding, 3- ImproveStrength/Elizabet 1=Demonstrate adherence to instructed precautions during ADL tasks. 2=Patient will verbalize/demonstrate understanding of assistive devices/ modifications for ADL. 3=Patient will improve strength/tolerance for activity to enable patient to perform ADL's. OT Education/Plan Discharge Recommendations Plan/Recommendations: Continue POC Treatment Plan/Plan of Care Patient would benefit from OT for education, treatment and training to promote independence in ADL's, mobility, safety and/or upper extremity function for ADL' s. Plan of Care: ADL Retraining, Caregiver Training, Cognitive Retraining, Functional Mobility, UE Funct Exercise/Act, UE Neuromus Re-Ed/Coord Treatment Duration: Jul 26, 2018 Frequency: 5 times per week Estimated Hrs Per Day: .25 hour per day Rehab Potential: Guarded Time/GCodes Start Time: 11:20 Stop Time: 11:40 Total Time Billed (hr/min): 20 Billed Treatment Time 1 visit-ADL 1 (20 min) FARZANA OLSON Jun 29, 2018 11:40
[2018-06-29] MEDS ORDERED: AZIT250T12 PO (14:04)
[2018-06-29] MEDS ORDERED: ACHD5005 PO (14:04)
[2018-06-29] MEDS ORDERED: CEPH-507 PO (14:04)
[2018-06-29] MEDS ORDERED: FENT1PAT8 TD (14:04)
--- NOTE | 2018-06-29 14:30 | Discharge Inst-Skilled Nursing ---
Discharge Inst-Skilled NF Patient Instructions Patient Problems: right acetabular fracture Consult/Follow Up/Orders Follow Up Appt.: With Dr Smith or medical csr in the next week. With Orthopedic Surgery in [facility]. Skilled NF Admit to: Certification (SNF) I certify that SNF services are required to be given on an inpatient basis because of the above named patient's need for usp care on a continuing basis for the conditions(s) for which he/she was receiving inpatient hospital services prior to his/her transfer to the SNF. [facility]pc Facility Order: Nursing Services, Nitric Acid Concentrator Operator-Evaluate & Treat, Physical Therapy-Evaluate & Treat, Speech Language-Evaluate & Treat Discharge Diet: No Restrictions Daily Activity as Tolerated: No (NWB on right, as tolerated on left) New & Resume Previous Orders Jovanni Liao Jun 29, 2018 14:22 JOVANNI LIAO MD Jun 29, 2018 14:27
--- NOTE | 2018-06-29 15:21 | Speech Therapy Daily Note ---
Speech Daily Progress Note Subjective Date Seen by Provider: Jun 29, 2018 Time Seen by Provider: 15:00 Patient was sitting up in bed when I entered the room. He was waiting on his lunch to arrive. Objective Patient consumed 75% of his meal with one cough/clear incident noted. Compensatory strategies were taught to alternate food:drink of 1 sip after every 2-3 bites and smaller bites with the meal intake. 70% follow through with moderate verbal cues. Assessment Assessment Current Status: Fair Progress Treatment Plan Continue Plan of Care Speech Short Term Goals Short Term Goals Short Term Goals 1) Patient will tolerate least restrictive diet level 90% or greater intake w/o s/s of aspiration. 2) Patient will utilize compensatory strategies as trained with 90% or greater function. Speech Opening Machine Cleaner Goals Detention Goals Patient will maintain adequate nutrition/hydration via safe effective swallow function. Speech-Plan Patient/Family Goals Patient/Family Goals: Patient plans to return home with family post rehab. Treatment Plan Speech Therapy Treatment Plan: Continue Plan of Care Patient has difficulty with retention of new information. Treatment Duration: Jun 30, 2018 Frequency: 5 times per week Estimated Hrs Per Day: .25 hour per day Rehab Potential: Guarded Barriers to Learning: Patient's decreased cognition Pt/Family Agrees to Plan: Yes Safety Risks/Education Teaching Recipient: Patient Teaching Methods: Discussion Response to Teaching: Verbalize Understanding Education Topics Provided: Safety of oral intake. Time Speech Therapy Time In: 12:00 Speech Therapy Time Out: 12:15 Total Billed Time: 15 Billed Treatment Time PABLO Grigsby ELOYANIRA PAZALISIA PATTERSON Jun 29, 2018 15:21
--- NOTE | 2018-06-29 15:49 | NUR ---
FUAD/NGHIA Morrison with [facility] called and stated that the have a current CARE Assessment on the patient. Discussed that after therapy worked with him this day, they feel he would be best transported by Ambulance, that will be arranged in the morning.
--- NOTE | 2018-06-29 16:00 | NUR ---
DR SANTANA ON THE FLOOR. SHE WAS NOTIFIED THE PATIENT PULLED THE MCMILLAN OUT. THE BALLOON ON THE CATHETER DID NOT APPEAR TO HAVE BEEN INFLATED. NO TRAUMA NOTED TO URETER. OKAY TO LEAVE THE MCMILLAN OUT
[2018-06-29 16:01] VITALS: BP 154/67
[2018-06-29 19:06] VITALS: BP 146/66
[2018-06-29] MEDS: SIMvastatin 20 MG (ZOCOR) TAB PO SCH (21:00)
[2018-06-29] MEDS: HYDROcodone/APAP 5 MG/325 MG (LORTAB) TAB PO PRN (21:10)
[2018-06-30 00:15] VITALS: BP 137/64
[2018-06-30] MEDS: 1/2 NS IV SOLUTION 1,000 ML IV SCH (03:26)
--- NOTE | 2018-06-30 07:35 | NUR ---
home oxygen study pt resting on room air dropped spo2 down to 83%, placed back on 2 lpm nasal cannula and spo2 increased to 92%, pt will require 2 lpm nasal cannula at all times.
[2018-06-30 07:41] VITALS: BP 172/74
--- NOTE | 2018-06-30 08:05 | Discharge Summary-Hospitalist ---
Diagnosis/Chief Complaint Date of Admission Jun 27, 2018 at 13:27 Date of Discharge Discharge Date: Jun 29, 2018 Admission Diagnosis Right acetabular fracture Discharge Diagnosis (1) Right acetabular fracture Status: Acute Assessment & Plan: Ortho consulted appreciate recs Discussed with Dr Mcguire who states nonoperative Continue pain management- well controlled with fentanyl patch RLE NWB, WBAT on LLE PT/OT consulted (2) Fever Assessment & Plan: One time fever of 105 overnight Blood cultures NGTD CXR reveals possible infiltrate Continue CAP coverage (3) Acute renal failure Status: Acute Assessment & Plan: Improving, continue IVF Acute on CKD- now at baseline (4) Parkinson disease Assessment & Plan: Continue on home meds (5) Essential (primary) hypertension Assessment & Plan: Resume home meds, trend Mildly elevated overnight Discharge Summary Discharge Physical Exam Allergies: Coded Allergies: No Known Drug Allergies (Unverified , 05/27/18) Vitals & I&Os Vital Signs Date Time Temp Pulse Resp B/P (MAP) Pulse Ox O2 Delivery O2 Flow Rate FiO2 06/30/18 07:41 98.4 73 20 172/74 (106) 94 Nasal Cannula 2.00 General Appearance: No Apparent Distress, Chronically ill Respiratory: Lungs Clear, No Respiratory Distress Cardiovascular: Regular Rate, Rhythm, No Murmur Hospital Course Pt was admitted from outside facility due to acute right acetabular fracture, pubis ramus fracture, and ANAI. He was seen in consultation by orthopedic surgery who deemed this inoperable. He is to be non weight bearing for 6 weeks on the RLE. He was unable to return to his [facility] due to his limitations in activity and was discharged to assisted. His pain was controlled with a fentanyl patch and prn hydrocodone. He was discharged in stable condition. Labs (last 24 hrs) Microbiology 06/29/18 Blood Culture - Preliminary, Resulted No growth Patient resulted labs reviewed. Discussion & Recommendations Discharge Planning: >30 minutes discharge planning Discharge Home Medications: Active Scripts Active Keflex (Cephalexin) 500 Mg Capsule 500 Mg PO BID Azithromycin 250 Mg Tablet 250 Mg PO DAILY Hydrocodone/Acetaminophen 5/325mg Tablet (Acetaminophen/Hydrocodone Bitart) 1 Tab Tab 1 Tab PO Q4H PRN Fentanyl Patch 25 MCG (Fentanyl) 1 Each Patch.td72 25 Mcg TD Q72H Reported Ultram (Tramadol HCl) 50 Mg Tablet 50 Mg PO Q8H PRN Miralax (Polyethylene Glycol 3350) 17 Gm Powd.pack 17 Gm PO DAILY PRN Tylenol (Acetaminophen) 325 Mg Tablet 650 Mg PO Q4H PRN Amantadine (Amantadine HCl) 100 Mg Tablet 100 Mg PO 0800,1800 Sodium Bicarbonate 650 Mg Tablet 650 Mg PO BID Minoxidil 2.5 Mg Tablet 2.5 Mg PO BID Hydrochlorothiazide 12.5 Mg Tablet 12.5 Mg PO DAILY Furosemide 20 Mg Tablet 20 Mg PO DAILY Vitamin C (Ascorbic Acid) 500 Mg Capsule 500 Mg PO 1400 Simvastatin 20 Mg Tablet 20 Mg PO HS Omeprazole 20 Mg Tablet.dr 20 Mg PO DAILY Labetalol HCl 300 Mg Tablet 300 Mg PO BID DO NOT GIVE IF SYSTOLIC B/P <100, OR PULSE <60 Vitamin D3 (Cholecalciferol (Vitamin D3)) 1,000 Unit Tablet 1,000 Unit PO 1400 Aspir 81 (Aspirin) 81 Mg Tablet.dr 81 Mg PO DAILY Gabapentin 600 Mg Tablet 600 Mg PO BID Amlodipine Besylate 10 Mg Tablet 10 Mg PO DAILY Aranesp (Darbepoetin Javier in Polysorbat) 25 Mcg/1 Ml Vial 25 Mcg SQ FR Allopurinol 100 Mg Tablet 100 Mg PO DAILY Spironolactone 50 Mg Tablet 50 Mg PO 0800,1400 Rytary ER 23.75 mg-95 mg Cap (Carbidopa/Levodopa) 1 Each Capsule.er 3 Cap PO 0630,1400,2100 Instructions to patient/family Please see electronic discharge instructions given to patient. Clinical Quality Measures DVT/VTE Risk/Contraindication: Risk Factor Score Per Nursin RFS Level Per Nursing on Admit: 4+=Very High Problem Qualifiers (1) Right acetabular fracture: Encounter type: initial encounter Sublocation of acetabulum: unspecified portion of acetabulum Fracture type: closed (2) Fever: Encounter type: initial encounter (3) Acute renal failure: Acute renal failure type: unspecified Qualified Codes: N17.9 - Acute kidney failure, unspecified JOVANNI SANTANA MD Jun 30, 2018 08:05
[2018-06-30] MEDS: SODIUM BICARBONATE 650 MG TABLET (NON-FORMULARY) PO SCH (08:24)
[2018-06-30] MEDS: LABETALOL 200 MG (NORMODYNE) TAB PO SCH (08:24)
[2018-06-30] MEDS: AMANTADINE 100 MG (SYMMETREL) CAP PO SCH (08:25)
[2018-06-30] MEDS: ALLOPURINOL 100 MG (ZYLOPRIM) TAB PO SCH (08:25)
[2018-06-30] MEDS: GABAPENTIN 600 MG (NEURONTIN) TAB PO SCH (08:25)
[2018-06-30] MEDS: MINOXIDIL 2.5 MG PO SCH (08:25)
[2018-06-30] MEDS: SINEMET CR 50/200 (CARBIDOPA/LEVODOPA SA) TAB PO SCH (08:25)
[2018-06-30] MEDS: amLODIPine 10 MG (NORVASC) TAB PO SCH (08:25)
[2018-06-30] MEDS: cefTRIAXone FOR IV USE 1,000 MG in NS (IVPB) 50 ML IV SCH (08:26)
[2018-06-30] MEDS: HYDROcodone/APAP 5 MG/325 MG (LORTAB) TAB PO PRN (08:54)
[2018-06-30] MEDS ORDERED: AZITHROMYCIN 250 MG TAB (ZITHROMAX) PO SCH (09:00)
--- NOTE | 2018-06-30 10:00 | NUR ---
CM/SS patient will transport this day to [facility]. All necessary discharge information was sent to them. [facility] was not going to be able to transport. [facility] will transport this day.
--- NOTE | 2018-06-30 10:32 | NUR ---
[facility] HERE TO TRANSPORT PATIENT TO [facility]. PATIENT COMPLAINING OF PAIN IN RIGHT HIP. PAIN MEDICATION GIVEN TO PATIENT. IV REMOVED WITH CATHETER INTACT. PATIENT TRANSPORTED OUT OF FACILITY ON STRETCHER WITH O2 2L NASAL CANNULA. DISCHARGE PAPER WORK AND PATIENT BELONGINGS GIVEN TO EMS.
[2018-06-30 10:35] VITALS: BP 172/74
[2018-07-01] MEDS ORDERED: FENTANYL PATCH REMOVAL TP SCH (09:29)
== END 2018-06-30 10:25 | DRG 682 ==
LOC: 4TH 13:27 → UNDOADMOB 13:27 → 4TH 13:27 → EDSTATUS 14:29 → UNDODISOB 06-30 10:25
PROVIDERS: ADMIT Family Medicine; ATTEND Family Medicine
DX: N17.9 Acute kidney failure, unspecified (principal); S32.401A Unspecified fracture of right acetabulum, initial encounter for closed fracture; S32.501A Unspecified fracture of right pubis, initial encounter for closed fracture; I12.9 Hypertensive chronic kidney disease with stage 1 through stage 4 chronic kidney disease, or unspecified chronic kidney disease; N18.9 Chronic kidney disease, unspecified; E11.22 Type 2 diabetes mellitus with diabetic chronic kidney disease; G31.83 Neurocognitive disorder with Lewy bodies; F02.80 Dementia in other diseases classified elsewhere, unspecified severity, without behavioral disturbance, psychotic disturbance, mood disturbance, and anxiety; K59.00 Constipation, unspecified; R50.9 Fever, unspecified; W19.XXXA Unspecified fall, initial encounter
CPT/HCPCS: 36415; 71045; 80048; 81000; 83605; 85025; 87040; 90471; 94761

== ENCOUNTER 2018-07-14 08:48 | Outpatient (CLI) | payer MEDICARE ==
[~2018-07-14] VITALS: Ht 185.4 cm; Wt 97.5 kg
[2018-07-14] VITALS (7 sets, daily range): BP systolic 124–136; BP diastolic 51–93
[~2018-07-14 08:48] MED LIST changes: +ACET325T38 PO; +ACHD5005 PO; +AZIT250T12 PO; +CEPH-507 PO; +FENT1PAT8 TD; +TRAM-42 PO
[2018-07-14] MEDS ORDERED: NS IV 500 ML 500 ML IV SCH (09:00)
[2018-07-14 17:15] LABS: HEMOGLOBIN 7.7 G/DL (13.3-17.7)
== END 2018-07-14 16:30 ==
LOC: SDC 08:48
PROVIDERS: ATTEND Pediatrics
DX: D64.9 Anemia, unspecified (principal); E11.9 Type 2 diabetes mellitus without complications
CPT/HCPCS: 36415; 36430; 82962; 85014; 85018; 86850; 86900; 86901; 86920

== ENCOUNTER 2018-07-17 08:44 | Inpatient (IN) | payer MEDICARE, OTHER ==
[~2018-07-17] VITALS: Ht 188 cm; Wt 98.0 kg
[2018-07-17] MEDS ORDERED: NS IV 1000 ML 1,000 ML IV SCH (09:02)
[2018-07-17 09:25] LABS: WHITE BLOOD COUNT 7.7 10^3/uL (4.3-11.0)
[2018-07-17 09:26] LABS: EOSINOPHILS % (AUTO) 0 % (0-10); HEMATOCRIT 25 % (40-54); HEMOGLOBIN 7.7 G/DL (13.3-17.7); LYMPHOCYTES % (AUTO) 7 % (12-44); MEAN CORPUSCULAR HEMOGLOBIN 30 PG (25-34); MEAN CORPUSCULAR HGB CONC 30 G/DL (32-36); MEAN CORPUSCULAR VOLUME 99 FL (80-99); MONOCYTES % (AUTO) 9 % (0-12); NEUTROPHILS % (AUTO) 83 % (42-75); PLATELET COUNT 166 10^3/uL (130-400); RED CELL DISTRIBUTION WIDTH 17.4 % (10.0-14.5)
[2018-07-17 09:27] LABS: BASOPHILS % (AUTO) 0 % (0-10); LYMPHOCYTES # (AUTO) 0.6 X 10^3 (1.0-4.0); MONOCYTES # (AUTO) 0.7 X 10^3 (0.0-1.0); NEUTROPHILS # (AUTO) 6.4 X 10^3 (1.8-7.8)
--- NOTE | 2018-07-17 09:33 | ED General ---
General Chief Complaint: Altered Mental Status Stated Complaint: CONFUSION Nursing Triage Note: Pt to ED via wheelchair from [facility]. Facility staff report pt is confused and not able make sense of words. Per global transportation manager, pt has not been his normal self this weekend. Nursing Sepsis Screen: No Definite Risk Source of Information: Caregiver, [facility] Records Exam Limitations: Physical Impairments History of Present Illness Date Seen by Provider: Jul 17, 2018 Time Seen by Provider: 09:00 Initial Comments 73 yr old NH pt presents with 3 day hx of confusion. Hx limited. No respiratory or other reported associated sx. No fever, N/V/D or urinary sx reported. Allergies and Home Medications Allergies Coded Allergies: No Known Drug Allergies (Unverified , 05/27/18) Home Medications Acetaminophen 325 Mg Tablet, 650 MG PO Q4H PRN for PAIN-MILD, (Reported) Allopurinol 100 Mg Tablet, 100 MG PO DAILY, (Reported) Amantadine HCl 100 Mg Tablet, 100 MG PO 0800,1800, (Reported) Amlodipine Besylate 10 Mg Tablet, 10 MG PO DAILY, (Reported) Ascorbic Acid 500 Mg Capsule, 500 MG PO 1400, (Reported) Aspirin 81 Mg Tablet.dr, 81 MG PO DAILY, (Reported) Azithromycin 250 Mg Tablet, 250 MG PO DAILY Prescribed by: JOVANNI SANTANA on 06/29/18 140 Carbidopa/Levodopa 1 Each Capsule.er, 3 CAP PO 0630,1400,2100, (Reported) Cephalexin 500 Mg Capsule, 500 MG PO BID Prescribed by: JOVANNI SANTANA on 06/29/18 140 Cholecalciferol (Vitamin D3) 1,000 Unit Tablet, 1,000 UNIT PO 1400, (Reported) Darbepoetin Javier in Polysorbat 25 Mcg/1 Ml Vial, 25 MCG SQ Fr, (Reported) Fentanyl 1 Each Patch.td72, 25 MCG TD Q72H Prescribed by: JOVANNI SANTANA on 06/29/18 140 Furosemide 20 Mg Tablet, 20 MG PO DAILY, (Reported) Gabapentin 600 Mg Tablet, 600 MG PO BID, (Reported) Hydrocodone Bit/Acetaminophen 1 Tab Tab, 1 TAB PO Q4H PRN for PAIN-MODERATE Prescribed by: JOVANNI SANTANA on 06/29/18 140 Labetalol HCl 300 Mg Tablet, 300 MG PO BID, (Reported) DO NOT GIVE IF SYSTOLIC B/P <100, OR PULSE <60 Minoxidil 2.5 Mg Tablet, 2.5 MG PO BID, (Reported) Omeprazole 20 Mg Tablet.dr, 20 MG PO DAILY, (Reported) Polyethylene Glycol 3350 17 Gm Powd.pack, 17 GM PO DAILY PRN for CONSTIPATION- 2ND LINE, (Reported) Simvastatin 20 Mg Tablet, 20 MG PO HS, (Reported) Sodium Bicarbonate 650 Mg Tablet, 650 MG PO BID, (Reported) Spironolactone 50 Mg Tablet, 50 MG PO 0800,1400, (Reported) Tramadol HCl 50 Mg Tablet, 50 MG PO Q8H PRN for PAIN-MODERATE, (Reported) Patient Home Medication List Home Medication List Reviewed: Yes Review of Systems Review of Systems Constitutional: see HPI, other (unable to respond due to medical condition) unable to complete ROS due to ALOC. Past Taywbmy-Lpegkb-Paeyji Hx Patient Social History Recent Foreign Travel: No Contact w/Someone Who Travel: No Recent Infectious Disease Expo: No Recent Hopitalizations: No Physical Abuse: No Sexual Abuse: No Immunizations Up To Date Date of Pneumonia Vaccine: May 27, 2016 Date of Influenza Vaccine: Feb 17, 2018 Seasonal Allergies Seasonal Allergies: No Past Medical History Surgeries: No Respiratory: No Cardiac: Yes Hypertension Neurological: Yes Dementia, Parkinson's Disease Genitourinary: Yes (CHRONIC KIDNEY DZ) Renal Failure Gastrointestinal: No Musculoskeletal: Yes (OSTEO ARTHRITIS. ) Endocrine: Yes Diabetes, Non-Insulin dep HEENT: No Cancer: No Psychosocial: No Integumentary: No Blood Disorders: Yes (CHRONIC AMEMIA) Family Medical History No Pertinent Family Hx Physical Exam-Suspected Sepsis Physical Exam Vital Signs Vital Signs - First Documented 07/17/18 08:58 Temp 97.3 Pulse 71 Resp 20 B/P (MAP) 132/72 (92) Pulse Ox 90 O2 Delivery Nasal Cannula O2 Flow Rate 2.00 Capillary Refill : Less Than 3 Seconds Blood Pressure Mean: 92 Height, Weight, BMI Height: 6'2.00" Weight: 215lbs. 0.0oz. 97.332195xi; 28.4 BMI Method:Estimated General Appearance: Chronically ill, Moderate Distress Eyes: Bilateral Eye Normal Inspection, Bilateral Eye PERRL, Bilateral Eye EOMI , Bilateral Eye Other (injected) HEENT: PERRL/EOMI, TMs Normal, Normal ENT Inspection, Pharynx Normal; No Moist Mucous Membranes Neck: Full Range of Motion, Normal Inspection, Non Tender, Supple Respiratory: Chest Non Tender, Normal Breath Sounds, No Accessory Muscle Use, No Respiratory Distress, Decreased Breath Sounds Cardiovascular: Regular Rate, Rhythm, No Edema, No Gallop, No JVD, No Murmur, Normal Peripheral Pulses Gastrointestinal: Normal Bowel Sounds, No Organomegaly, No Pulsatile Mass, Non Tender, Soft Back: Normal Inspection, No CVA Tenderness, No Vertebral Tenderness Extremity: Normal Capillary Refill, Normal Inspection, Normal Range of Motion, Non Tender, No Calf Tenderness, No Pedal Edema Neurologic/Psychiatric: Disoriented Reflexes: 1+ Bicep (R), 1+ Bicep (L) Skin: normal color, warm/dry Lymphatic: No Adenopathy Focused Exam Lactate Level 07/17/18 09:07: Lactic Acid Level 1.03 Lactic Acid Level Progress/Results/Core Measures Suspected Sepsis Recent Fever Within 48 Hours: No Infection Criteria Present: Suspected New Infection New/Unexplained Altered Menta: Yes Sepsis Screen: No Definite Risk Within 3hrs of presentation: Admin fluids (limited due to renal failure), Blood cultures prior to ABX's, Lactate level SIRS Temperature:97.3 Pulse: 71 Respiratory Rate: 20 Laboratory Tests 07/17/18 09:07: White Blood Count 7.7 Blood Pressure 132 /72 Mean: 92 07/17/18 09:07: Lactic Acid Level 1.03 Laboratory Tests 07/17/18 09:07: Creatinine 4.59H, INR Comment 1.3, Platelet Count 166, Total Bilirubin 0.7 Results/Orders Lab Results Laboratory Tests Test 07/17/18 09:07 07/17/18 09:25 Range/Units White Blood Count 7.7 4.3-11.0 10^3/uL Red Blood Count 2.55 L 4.35-5.85 10^6/uL Hemoglobin 7.7 L 13.3-17.7 G/DL Hematocrit 25 L 40-54 % Mean Corpuscular Volume 99 80-99 FL Mean Corpuscular Hemoglobin 30 25-34 PG Mean Corpuscular Hemoglobin Concent 30 L 32-36 G/DL Red Cell Distribution Width 17.4 H 10.0-14.5 % Platelet Count 166 130-400 10^3/uL Mean Platelet Volume 12.0 H 7.4-10.4 FL Neutrophils (%) (Auto) 83 H 42-75 % Lymphocytes (%) (Auto) 7 L 12-44 % Monocytes (%) (Auto) 9 0-12 % Eosinophils (%) (Auto) 0 0-10 % Basophils (%) (Auto) 0 0-10 % Neutrophils # (Auto) 6.4 1.8-7.8 X 10^3 Lymphocytes # (Auto) 0.6 L 1.0-4.0 X 10^3 Monocytes # (Auto) 0.7 0.0-1.0 X 10^3 Eosinophils # (Auto) 0.0 0.0-0.3 10^3/uL Basophils # (Auto) 0.0 0.0-0.1 10^3/uL Neutrophils % (Manual) 88 % Lymphocytes % (Manual) 3 % Monocytes % (Manual) 5 % Band Neutrophils 4 % Nucleated Red Blood Cells 1 Blood Morphology Comment NORMAL Prothrombin Time 16.3 H 12.2-14.7 SEC INR Comment 1.3 0.8-1.4 Activated Partial Thromboplast Time 35 24-35 SEC Sodium Level 144 135-145 MMOL/L Potassium Level 5.6 H 3.6-5.0 MMOL/L Chloride Level 101 98-107 MMOL/L Carbon Dioxide Level 15 L 21-32 MMOL/L Anion Gap 28 H 5-14 MMOL/L Blood Urea Nitrogen 100 *H 7-18 MG/DL Creatinine 4.59 H 0.60-1.30 MG/DL Estimat Glomerular Filtration Rate 13 BUN/Creatinine Ratio 22 Glucose Level 90 70-105 MG/DL Lactic Acid Level 1.03 0.50-2.00 MMOL/L Calcium Level 9.1 8.5-10.1 MG/DL Corrected Calcium 9.1 8.5-10.1 MG/DL Total Bilirubin 0.7 0.1-1.0 MG/DL Aspartate Amino Transf (AST/SGOT) 11 5-34 U/L Alanine Aminotransferase (ALT/SGPT) 5 0-55 U/L Alkaline Phosphatase 69 40-136 U/L Troponin I 0.178 H <0.028 NG/ML Total Protein 6.6 6.4-8.2 GM/DL Albumin 4.0 3.2-4.5 GM/DL Urine Color DARK YELLOW Urine Clarity CLEAR Urine pH 5.0 5-9 Urine Specific [place] >=1.030 1.016-1.022 Urine Protein TRACE NEGATIVE Urine Glucose (UA) NEGATIVE NEGATIVE Urine Ketones TRACE H NEGATIVE Urine Nitrite NEGATIVE NEGATIVE Urine Bilirubin NEGATIVE NEGATIVE Urine Urobilinogen 0.2 NORMAL MG/DL Urine Leukocyte Esterase NEGATIVE NEGATIVE Urine RBC (Auto) NEGATIVE NEGATIVE Urine RBC 0-2 /HPF Urine WBC 2-5 /HPF Urine Squamous Epithelial Cells 0-2 /HPF Urine Crystals NONE /LPF Urine Bacteria TRACE /HPF Urine Casts PRESENT /LPF Urine Hyaline Casts 0-2 H /LPF Urine Mucus NEGATIVE /LPF Urine Culture Indicated NO Micro Results Microbiology 07/17/18 Influenza Types A,B Antigen (SERAFIN) - Final, Complete My Orders Orders - KENNEDY PASTRANA MD Cbc With Automated Diff (07/17/18 09:02) Comprehensive Metabolic Panel (07/17/18 09:02) Blood Culture (07/17/18 09:02) Sputum Culture (07/17/18 09:02) Urinalysis (07/17/18 09:02) Urine Culture (07/17/18 09:02) Protime With Inr (07/17/18 09:02) Partial Thromboplastin Time (07/17/18 09:02) Chest 1 View Ap/Pa Only (07/17/18 09:02) Saline Lock/Iv-Start (07/17/18 09:02) Vital Signs Adult Sepsis Patie Q15M (07/17/18 09:02) O2 (07/17/18 09:02) Remove Rings In Anticipation O (07/17/18 09:02) Lactic Acid Analyzer (07/17/18 09:02) Influenza A And B Antigens (07/17/18 09:02) Saline Lock/Iv-Start (07/17/18 09:02) Ns Iv 1000 Ml (Sodium Chloride 0.9%) (07/17/18 09:02) Troponin I (07/17/18 09:21) Manual Differential (07/17/18 09:07) Ct Head Wo-R/O Stroke (07/17/18 11:06) Levofloxacin 500 Mg/100 Ml Iv (Levaquin (07/17/18 11:15) Medications Given in ED Current Medications Medications Dose Ordered Sig/Shivam Route Start Time Stop Time Status Last Admin Dose Admin Levofloxacin/ Dextrose 100 ml @ 100 mls/hr ONCE ONCE IV 07/17/18 11:15 07/17/18 12:14 DC 07/17/18 11:44 100 MLS/HR Vital Signs/I&O 07/17/18 07/17/18 08:58 09:09 Temp 97.3 Pulse 71 Resp 20 B/P (MAP) 132/72 (92) Pulse Ox 90 90 O2 Delivery Nasal Cannula Nasal Cannula O2 Flow Rate 2.00 2.00 Capillary Refill : Less Than 3 Seconds Blood Pressure Mean: 92 Progress Note : Time: 09:48 Progress Note ALOC x 3 days minimum with hx of UTI. Will give initial fluid bolus and obtain lab testing to determine likely source. DNR status confirmed. Discussed with NH staff. 1102 DIL present who confirms DNR status. UA normal, CBC normal. In renal failure likely worsened by dehydration. Troponin elevated but consistent with renal failure. Will obtain CT head to rule out central event and determine disposition. Will administer IV antibiotics. 1154 CXR shows bilateral pulmonary infiltrates. Levaquin infusing. Discussed with son and DIL. Awaiting CT head. 1210 Awaiting bed availability at [facility] for transfer and admission. Discussed with family who understand and agree. ECG Initial ECG Impression Date: Jul 17, 2018 Initial ECG Impression Time: 09:37 Initial ECG Rate: 44 Initial ECG Rhythm: Normal Sinus Initial ECG Intervals: Normal Initial ECG Impression: Sinus Bradycardia Comment nonspecific T wave changes Diagnostic Imaging Diagonstic Imaging: Xray, CT Comments CHEST 1 VIEW AP/PA ONLY Indication: Confusion. Time of exam: 9:45 AM Correlation is made with prior study from 06/28/2018. The heart is enlarged. There are airspace infiltrates noted in both lungs, upper and lower lung traore. There are central congestive changes noted. No effusion or pneumothorax is seen. Impression: Bilateral airspace pulmonary infiltrates, increased when compared with prior chest radiograph from 06/28/2018. Dictated on workstation # [id number] Dict: 07/17/18 0954 Trans: 07/17/18 0956 [facility] [id number] Interpreted by: HUY BIRCH MD CT HEAD WO-R/O STROKE PROCEDURE: CT head wo r/o stroke. TECHNIQUE: Multiple contiguous axial images were obtained through the brain without the use of intravenous contrast. INDICATION: Mental status change. COMPARISON: Comparison is made with prior CT from 05/27/2018. FINDINGS: The study is compromised due to significant patient motion. Ventricles and sulci appear stable. No midline shift is seen. No definite sulcal effacement is identified. No definite acute intra-axial or extra-axial hemorrhage is seen. Cisterns are patent. Paranasal sinuses demonstrate opacification of the left maxillary sinus as well as the frontal sinus. IMPRESSION: 1. Limited study due to significant patient motion. No gross intracranial abnormalities detected. 2. Opacified frontal and left maxillary sinus consistent with sinusitis. Dictated on workstation # [id number] Dict: 07/17/18 1140 Trans: 07/17/18 1147 [id number] Interpreted by: HUY BIRCH MD Electronically signed by: Consults Consults : Consulting Physician: CAMMIE BONILLA MD Consults Notes Discussed pt with him and he accepts for admission. Bridge orders completed. Transfer of Care Transfer of Care Time: 13:40 Care transferred to: [facility] Departure Impression Primary Impression: Pneumonia Qualified Codes: J18.9 - Pneumonia, unspecified organism Additional Impressions: Renal failure (ARF), acute on chronic Qualified Codes: N17.9 - Acute kidney failure, unspecified; N18.9 - Chronic kidney disease, unspecified Dehydration Altered mental status Qualified Codes: R41.0 - Disorientation, unspecified Disposition: ADMITTED INPATIENT Condition: Improved Admissions Decision to Admit Reason: Admit from ER (General) Decision to Admit/Date: Jul 17, 2018 Time/Decision to Admit Time: 13:50 Transfer Time Spoke to Accepting Phy: 13:40 Transfer Progress Notes Discussed with Dr. Yost who accepts pt for admission. Transfer Facility: [facility] Method of Transfer: EMS Departure-Patient Inst. Referrals: KENNEDY MYLES MD (PCP/Family) Primary Care Physician KENNEDY PASTRANA MD Jul 17, 2018 09:33
[2018-07-17 09:52] LABS: INR 1.3 (0.8-1.4); PROTHROMBIN TIME PATIENT 16.3 SEC (12.2-14.7)
--- NOTE | 2018-07-17 09:56 | Diagnostic Imaging Report ---
Indication: Confusion. Time of exam: 9:45 AM Correlation is made with prior study from 06/28/2018. The heart is enlarged. There are airspace infiltrates noted in both lungs, upper and lower lung traore. There are central congestive changes noted. No effusion or pneumothorax is seen. Impression: Bilateral airspace pulmonary infiltrates, increased when compared with prior chest radiograph from 06/28/2018. Dictated by: Dictated on workstation # [id number]
[2018-07-17 10:14] LABS: BAND NEUTROPHILS 4 %; LYMPHOCYTES % (MANUAL) 3 %; MONOCYTES % (MANUAL) 5 %; NEUTROPHILS % (MANUAL) 88 %; NUCLEATED RED BLOOD CELLS 1
[2018-07-17 10:16] LABS: RBC MORPH NORMAL
[2018-07-17 10:34] LABS: CLARITY,URINE CLEAR; COLOR,URINE DARK YELLOW
[2018-07-17 10:35] LABS: PROTEIN,URINE TRACE (NEGATIVE)
[2018-07-17 10:36] LABS: BILIRUBIN,URINE NEGATIVE (NEGATIVE); GLUCOSE, URINE (UA) NEGATIVE (NEGATIVE); KETONES,URINE TRACE (NEGATIVE); NITRITE,URINE NEGATIVE (NEGATIVE)
[2018-07-17 10:37] LABS: BACTERIA,URINE TRACE /HPF; LEUKOCYTE ESTERASE ,URINE NEGATIVE (NEGATIVE); RBC,URINE 0-2 /HPF; UROBILINOGEN,URINE 0.2 MG/DL (NORMAL)
[2018-07-17 10:38] LABS: HYALINE CASTS, URINE 0-2 /LPF; SQUAMOUS EPITHELIAL CELL,UR 0-2 /HPF
[2018-07-17 10:58] LABS: POTASSIUM 5.6 MMOL/L (3.6-5.0)
[2018-07-17 10:59] LABS: BILIRUBIN,TOTAL 0.7 MG/DL (0.1-1.0); CALCIUM 9.1 MG/DL (8.5-10.1); CREATININE SERUM 4.59 MG/DL (0.60-1.30); TOTAL PROTEIN 6.6 GM/DL (6.4-8.2)
[2018-07-17] MEDS ORDERED: LEVOFLOXACIN 500 MG/100 ML IV 100 ML IV ONE (11:15)
--- NOTE | 2018-07-17 11:48 | Diagnostic Imaging Report ---
PROCEDURE: CT head wo r/o stroke. TECHNIQUE: Multiple contiguous axial images were obtained through the brain without the use of intravenous contrast. INDICATION: Mental status change. COMPARISON: Comparison is made with prior CT from 05/27/2018. FINDINGS: The study is compromised due to significant patient motion. Ventricles and sulci appear stable. No midline shift is seen. No definite sulcal effacement is identified. No definite acute intra-axial or extra-axial hemorrhage is seen. Cisterns are patent. Paranasal sinuses demonstrate opacification of the left maxillary sinus as well as the frontal sinus. IMPRESSION: 1. Limited study due to significant patient motion. No gross intracranial abnormalities detected. 2. Opacified frontal and left maxillary sinus consistent with sinusitis. Dictated by: Dictated on workstation # [id number]
--- NOTE | 2018-07-17 12:06 | NUR ---
Updated Jaclyn LENNON at [facility] with plan of care.
--- NOTE | 2018-07-17 13:45 | NUR ---
Patient is to be admitted at [facility]. Daughter is in room and updated on patient status and admission to room 423.
--- NOTE | 2018-07-17 15:15 | NUR ---
ROSALIE ALVAREZ I admitted to room 423-1, with an admitting diagnosis of PNEUMONIA, ALTERED LEVEL OF CONSCIOUSNESS, on 07/17/18 from [facility] ED via EMS, accompanied by AMISHA. ROSALIE ALVAREZ I AND FAMILY introduced to surroundings, call light, bed controls, phone, TV, temperature control, lights, meal times, smoking policy, visitor policy, side rail policy, bathrooms and showers. Patient Rights given to patient AND FAMILY in the handbook. ROSALIE ALVAREZ I AND FAMILY verbalizes understanding that [facility] is not responsible for the loss or damage to any personal effects or valuables that are kept in the patients posession during their hospitalization. ROSALIE ALVAREZ I AND FAMILY verbalizes understanding of Interdisciplinary Patient Education. Patient and/or family were informed about the Rapid Response Team and its purpose.
[2018-07-17] MEDS ORDERED: HYDR-3812 PO (15:45)
[2018-07-17] MEDS ORDERED: FENT1PAT8 TD (15:45)
--- NOTE | 2018-07-17 15:46 | NUR ---
UPDATED MED REC WITH [facility]
[2018-07-17 16:00] VITALS: BP 110/63
[2018-07-17] MEDS ORDERED: ONDANSETRON 4 MG/2 ML (SDV) Z0FRAN IV PRN (16:00)
[2018-07-17] MEDS ORDERED: CATHETER FLUSH 10 ML SYR IV PRN (16:00)
[2018-07-17 17:13] VITALS: BP 132/72
[2018-07-17] MEDS: CEFEPIME 2,000 MG/SWFI 20 ML IV PUSH IV SCH ×2 (17:20)
[2018-07-17] MEDS ORDERED: RT-ALBUTEROL SULF 2.5 MG/3 ML PRE-MIX VIAL INH PRN (17:30)
[2018-07-17 17:53] VITALS: BP 110/63
[2018-07-17 20:00] VITALS: BP 119/60
[2018-07-17] MEDS: CATHETER FLUSH 10 ML SYR IV SCH (22:30)
[2018-07-17] MEDS: RT-ALBUTEROL SULF 2.5 MG/3 ML PRE-MIX VIAL INH SCH (23:33)
[2018-07-18 00:15] VITALS: BP 128/55
[2018-07-18] MEDS: RT-ALBUTEROL SULF 2.5 MG/3 ML PRE-MIX VIAL INH SCH ×6 (03:10→23:14)
[2018-07-18 05:00] VITALS: BP 104/61
[2018-07-18 06:16] LABS: BASOPHILS % (AUTO) 0 % (0-10); EOSINOPHILS # (AUTO) 0.1 10^3/uL (0.0-0.3); EOSINOPHILS % (AUTO) 1 % (0-10); HEMATOCRIT 24 % (40-54); HEMOGLOBIN 7.3 G/DL (13.3-17.7); LYMPHOCYTES # (AUTO) 0.5 X 10^3 (1.0-4.0); LYMPHOCYTES % (AUTO) 10 % (12-44); MEAN CORPUSCULAR HEMOGLOBIN 30 PG (25-34); MEAN CORPUSCULAR HGB CONC 31 G/DL (32-36); MEAN CORPUSCULAR VOLUME 99 FL (80-99); MEAN PLATELET VOLUME 11.9 FL (7.4-10.4); MONOCYTES # (AUTO) 0.5 X 10^3 (0.0-1.0); MONOCYTES % (AUTO) 9 % (0-12); NEUTROPHILS # (AUTO) 4.1 X 10^3 (1.8-7.8); NEUTROPHILS % (AUTO) 80 % (42-75); PLATELET COUNT 136 10^3/uL (130-400); RED CELL DISTRIBUTION WIDTH 17.4 % (10.0-14.5); WHITE BLOOD COUNT 5.2 10^3/uL (4.3-11.0)
[2018-07-18 06:31] LABS: ALANINE AMINOTRANSFERASE < 6 U/L (0-55); ALBUMIN 3.5 GM/DL (3.2-4.5); ALKALINE PHOSPHATASE 55 U/L (40-136); BILIRUBIN,TOTAL 0.7 MG/DL (0.1-1.0); BUN/CREATININE RATIO 18; CALCIUM 9.1 MG/DL (8.5-10.1); CARBON DIOXIDE 17 MMOL/L (21-32); CHLORIDE 109 MMOL/L (98-107); GFR ESTIMATED 9; GLUCOSE 74 MG/DL (70-105); POTASSIUM 5.5 MMOL/L (3.6-5.0); SODIUM 144 MMOL/L (135-145); TOTAL PROTEIN 6.1 GM/DL (6.4-8.2)
[2018-07-18] MEDS: CATHETER FLUSH 10 ML SYR IV SCH ×3 (06:34→21:25)
[2018-07-18 08:00] VITALS: BP 122/46
--- NOTE | 2018-07-18 11:36 | History & Physical-Hospitalist ---
History of Present Illness HPI/Chief Complaint The patient is a 73-year-old white male. He was sent to the emergency room at [facility] yesterday after his [facility] reported that he had been confused and making no sense for several days at the facility. I know him from a previous [facility] admission which was quite similar in its presentation. He was quite drowsy and roused slightly to touch and voice. He spoke only in gibberish. All of useful information is taken from the [facility] emergency room record and our previous inpatient records. His white blood count at [facility] was 7700 with a normal distribution. Hemoglobin was 7.7. On 06/28/18 and his creatinine was 1.98 and his BUN 46. Yesterday at [facility] the creatinine was 4.59 and the measure from today was 5.9. His BUN was 100 yesterday and 108 today. Source: RN/, old records Exam Limitations: no limitations Date Seen 07/18/18 Time Seen by a Provider: 11:31 Attending Physician Serge Bonilla MD PCP Florentino Smith MD Referring Physician SERGE BONILLA MD Date of Admission Jul 17, 2018 at 14:08 Home Medications & Allergies Home Medications Reviewed patient Home Medication Reconciliation performed by pharmacy medication reconciliations news gathering technician and/or nursing. Patients Allergies have been reviewed. Allergies Allergies Coded Allergies No Known Drug Allergies ([id number]/29/18) Past Ktlmqca-Dnkfex-Moemiy Hx Patient Social History Alcohol Use: Denies Use Recreational Drug Use: No Physical Abuse Screen: No Sexual Abuse: No Recent Foreign Travel: No Contact w/other who traveled: No Recent Hopitalizations: No Recent Infectious Disease Expo: No Immunizations Up To Date Date of Pneumonia Vaccine: May 27, 2016 Date of Influenza Vaccine: Feb 17, 2018 Seasonal Allergies Seasonal Allergies: No Past Medical History Cardiac: High Cholesterol, Hypertension Neurological: Dementia, Parkinson's Disease Genitourinary: Bladder Infection, Renal Failure Gastrointestinal: Gastroesophageal Reflux Musculoskeletal: Arthritis Endocrine: Diabetes, Non-Insulin dep History of Blood Disorders: Yes (anemia) Adverse Reaction to Blood Sigala: No Family History No Pertinent Family Hx Review of Systems Constitutional: see HPI, other (he is unable to provide any answers to review of system) Physical Exam Physical Exam Vital Signs Vital Signs - First Documented 07/17/18 07/17/18 08:58 17:13 Temp 97.3 Pulse 71 Resp 20 B/P (MAP) 132/72 (92) Pulse Ox 90 O2 Delivery Nasal Cannula O2 Flow Rate 2.00 FiO2 21 Capillary Refill : Less Than 3 SecondsLess Than 3 Seconds Height, Weight, BMI Height: 6'2.00" Weight: 216lbs. 0.0oz. 97.402197xm; 28.4 BMI Method:Estimated General Appearance: No Apparent Distress HEENT: PERRL/EOMI, Other (oral mucosa was dry.) Neck: Normal Inspection Respiratory: Chest Non Tender, Lungs Clear, Normal Breath Sounds Cardiovascular: Regular Rate, Rhythm Gastrointestinal: Abnormal Bowel Sounds (decreased bowel sounds no tenderness to palpation) Extremity: Other (some discoloration to the level of a crew sock. There appeared to be some ecchymoses on the right.) Lymphatic: No Adenopathy Results Results/Procedures Labs Laboratory Tests 07/17/18 09:07 07/18/18 06:00 Patient resulted labs reviewed. Assessment/Plan Admission Diagnosis Acute on chronic renal failure. 2.anemia etiology undetermined, renal may be the chronic disease issue. 3.dehydration. 4.acute on chronic renal insufficiency. Admission Status: Inpatient Order (span 2 midnights) Reason for Inpatient Admission: The problems that hand will require greater than 48 hours to address. Assessment and Plan Fluid resuscitation. Clinical Quality Measures DVT/VTE Risk/Contraindication: Risk Factor Score Per Nursin RFS Level Per Nursing on Admit: 4+=Very High SERGE BONILLA MD Jul 18, 2018 11:36
[2018-07-18 12:00] VITALS: BP 134/54
[2018-07-18] MEDS ORDERED: D5 LR IV SOLUTION 1,000 ML IV SCH (12:15)
[2018-07-18] MEDS ORDERED: D5 LR IV SOLUTION 1,000 ML IV ONE (12:30)
[2018-07-18] MEDS: D5 LR IV SOLUTION 1,000 ML IV SCH ×2 (14:10→20:36)
[2018-07-18 16:00] VITALS: BP 130/46
[2018-07-18] MEDS: CEFEPIME 2,000 MG/SWFI 20 ML IV PUSH IV SCH ×2 (17:06)
[2018-07-18 23:39] VITALS: BP 134/65
[2018-07-19] MEDS: D5 LR IV SOLUTION 1,000 ML IV SCH ×2 (03:06→12:03)
[2018-07-19] MEDS: RT-ALBUTEROL SULF 2.5 MG/3 ML PRE-MIX VIAL INH SCH ×3 (03:18→11:04)
[2018-07-19 03:34] VITALS: BP_SYST 134; BP_SYST 148; BP_DIAS 62; BP_DIAS 65
[2018-07-19 06:19] LABS: BASOPHILS % (AUTO) 0 % (0-10); EOSINOPHILS # (AUTO) 0.1 10^3/uL (0.0-0.3); EOSINOPHILS % (AUTO) 2 % (0-10); HEMATOCRIT 25 % (40-54); HEMOGLOBIN 7.7 G/DL (13.3-17.7); LYMPHOCYTES # (AUTO) 0.5 X 10^3 (1.0-4.0); LYMPHOCYTES % (AUTO) 11 % (12-44); MEAN CORPUSCULAR HEMOGLOBIN 30 PG (25-34); MEAN CORPUSCULAR HGB CONC 31 G/DL (32-36); MEAN CORPUSCULAR VOLUME 97 FL (80-99); MEAN PLATELET VOLUME 12.6 FL (7.4-10.4); MONOCYTES # (AUTO) 0.4 X 10^3 (0.0-1.0); MONOCYTES % (AUTO) 7 % (0-12); NEUTROPHILS % (AUTO) 80 % (42-75); PLATELET COUNT 130 10^3/uL (130-400); RED CELL DISTRIBUTION WIDTH 16.9 % (10.0-14.5)
[2018-07-19 06:37] LABS: CALCIUM 8.9 MG/DL (8.5-10.1); CREATININE SERUM 6.14 MG/DL (0.60-1.30)
--- NOTE | 2018-07-19 06:56 | NUR ---
dr esparza notified of pt low urine output et bun 111, new orders received
[2018-07-19] MEDS ORDERED: LACTATED RINGERS 1,000 ML IV ONE (07:00)
[2018-07-19] MEDS: CATHETER FLUSH 10 ML SYR IV SCH (07:15)
[2018-07-19 08:00] VITALS: BP 137/55
--- NOTE | 2018-07-19 09:06 | Progress Note-Hospitalist ---
Subjective HPI/CC On Admission Date Seen by Provider: Jul 19, 2018 Time Seen by Provider: 09:30 The patient is a 73-year-old white male. He was sent to the emergency room at [facility] yesterday after his [facility] reported that he had been confused and making no sense for several days at the facility. I know him from a previous [facility] admission which was quite similar in its presentation. He was quite drowsy and roused slightly to touch and voice. He spoke only in gibberish. All of useful information is taken from the [facility] emergency room record and our previous inpatient records. His white blood count at [facility] was 7700 with a normal distribution. Hemoglobin was 7.7. On 06/28/18 and his creatinine was 1.98 and his BUN 46. Yesterday at [facility] the creatinine was 4.59 and the measure from today was 5.9. His BUN was 100 yesterday and 108 today. Focused Exam Lactate Level 07/17/18 09:07: Lactic Acid Level 1.03 Objective Exam Vital Signs Vital Signs Date Time Temp Pulse Resp B/P (MAP) Pulse Ox O2 Delivery O2 Flow Rate FiO2 07/19/18 11:05 89 Nasal Cannula 2.00 07/19/18 08:00 97.8 46 16 137/55 (82) 07/17/18 17:13 21 Capillary Refill : Less Than 3 SecondsLess Than 3 Seconds General Appearance: No Apparent Distress HEENT: PERRL/EOMI, Other (oral mucosa was dry.) Neck: Normal Inspection Respiratory: Chest Non Tender, Lungs Clear, Normal Breath Sounds Cardiovascular: Regular Rate, Rhythm Gastrointestinal: Abnormal Bowel Sounds (decreased bowel sounds no tenderness to palpation) Back: Normal Inspection, No CVA Tenderness, No Vertebral Tenderness Extremity: Other (some discoloration to the level of a crew sock. There appeared to be some ecchymoses on the right.) Neurologic/Psychiatric: Disoriented Reflexes: 1+ Bicep (R), 1+ Bicep (L) Lymphatic: No Adenopathy Results/Procedures Lab Laboratory Tests 07/19/18 05:25 Patient resulted labs reviewed. Clinical Quality Measures DVT/VTE Risk/Contraindication: Risk Factor Score Per Nursin RFS Level Per Nursing on Admit: 4+=Very High ARRON REYNOSO DO Jul 19, 2018 09:06
--- NOTE | 2018-07-19 10:00 | NUR ---
BATH GIVEN, TURNED EVERY 2 HOURS, HEELS FLOSTED OFF BED, SCABED SORE ON SACRUM, ZINC OINTMENT APPLIED, SMALL BM,
--- NOTE | 2018-07-19 11:05 | NUR ---
PALLIATIVE CARE RN was requested to see this patient who is on his 3rd admission to the hospital since 05/29/2018. He has a history of renal failure which he has currently with worsening BUN/Cr. Patient awakened upon verbal stimulation, he opened his eyes and then promptly clinched them shut and started moaning. When asked where he is he verbalized " I don't really know where I am". He is very shakey. Will continue to follow and offer support as needed.
[2018-07-19] MEDS ORDERED: LORA2ORA PO (11:22)
[2018-07-19] MEDS ORDERED: MORP100S3 PO (11:22)
--- NOTE | 2018-07-19 11:27 | Discharge Summary-Hospitalist ---
Diagnosis/Chief Complaint Date of Admission Jul 17, 2018 at 14:08 Date of Discharge Discharge Date: Jul 19, 2018 Admission Diagnosis Acute on chronic renal failure. 2.anemia etiology undetermined, renal may be the chronic disease issue. 3.dehydration. 4.acute on chronic renal insufficiency. Discharge Diagnosis (1) Renal failure (ARF), acute on chronic Status: Acute (2) Altered mental status Status: Acute (3) Essential (primary) hypertension Status: Chronic Discharge Summary Discharge Physical Exam Allergies: Coded Allergies: No Known Drug Allergies (Unverified , 05/27/18) Vitals & I&Os Vital Signs Date Time Temp Pulse Resp B/P (MAP) Pulse Ox O2 Delivery O2 Flow Rate FiO2 07/19/18 14:42 46 16 137/55 89 Nasal Cannula 2.00 07/19/18 08:00 97.8 07/17/18 17:13 21 General Appearance: No Apparent Distress HEENT: PERRL/EOMI, Other (oral mucosa was dry.) Respiratory: Chest Non Tender, Lungs Clear, Normal Breath Sounds Cardiovascular: Regular Rate, Rhythm Gastrointestinal: Abnormal Bowel Sounds (decreased bowel sounds no tenderness to palpation) Extremity: Other (some discoloration to the level of a crew sock. There appeared to be some ecchymoses on the right.) Neurologic/Psychiatric: Disoriented Hospital Course Was the Problem List Reviewed?: Yes Hospital course: Pt had an uneventful and short hospital course. He was admitted for acute renal failure and altered mental status. Pt was given IV fluids but to no avail and creatinine increased to 6.1 and BUN of 111 with now complete oliguria so pt was hep locked. I updated his son regarding the in stage status of his father and he will be transferred back to [facility] on hosp[facility] care and likely will pass away soon. Labs (last 24 hrs) Laboratory Tests 07/19/18 05:25: White Blood Count 5.0, Red Blood Count 2.57L, Hemoglobin 7.7L, Hematocrit 25L, Mean Corpuscular Volume 97, Mean Corpuscular Hemoglobin 30, Mean Corpuscular Hemoglobin Concent 31L, Red Cell Distribution Width 16.9H, Platelet Count 130, Mean Platelet Volume 12.6H, Neutrophils (%) (Auto) 80H, Lymphocytes (%) (Auto) 11L, Monocytes (%) (Auto) 7, Eosinophils (%) (Auto) 2, Basophils (%) (Auto) 0, Neutrophils # (Auto) 4.0, Lymphocytes # (Auto) 0.5L, Monocytes # (Auto) 0.4, Eosinophils # (Auto) 0.1, Basophils # (Auto) 0.0, Sodium Level 141, Potassium Level 5.0, Chloride Level 108H, Carbon Dioxide Level 20L, Anion Gap 13, Blood Urea Nitrogen 111*H, Creatinine 6.14H, Estimat Glomerular Filtration Rate 9, BUN /Creatinine Ratio 18, Glucose Level 184H, Calcium Level 8.9 Microbiology 07/17/18 Blood Culture - Preliminary, Resulted No growth 07/17/18 Influenza Types A,B Antigen (SERAFIN) - Final, Complete Patient resulted labs reviewed. Pending Labs Discussion & Recommendations Discharge Planning: <30 minutes discharge planning Discharge Home Medications: Active Scripts Active Morphine Conc. 20mg/ml (Morphine Sulfate) 100 Mg/5 Ml Solution 5 Mg PO Q2H PRN Lorazepam Intensol (Lorazepam) 2 Mg/1 Ml Oral.conc 1 Mg PO Q2H PRN Instructions to patient/family Please see electronic discharge instructions given to patient. Clinical Quality Measures DVT/VTE Risk/Contraindication: Risk Factor Score Per Nursin RFS Level Per Nursing on Admit: 4+=Very High Problem Qualifiers (1) Renal failure (ARF), acute on chronic: Acute renal failure type: unspecified Chronic kidney disease stage: unspecified stage Qualified Codes: N17.9 - Acute kidney failure, unspecified; N18.9 - Chronic kidney disease, unspecified (2) Altered mental status: Altered mental status type: delirium Qualified Codes: R41.0 - Disorientation , unspecified ARRON REYNOSO DO Jul 19, 2018 11:27
--- NOTE | 2018-07-19 13:34 | NUR ---
Palliative Care RN is assisting in the discharge back to [facility] with [facility]. Dr. Brizuela and I have spoken with patient's son who is in agreement, given the severe ES renal failure without improvement with administration of IVFs., that he would benefit from hospice and is agreeable for discharge today. Deena and MARI have been faxed clinical information and are expecting the patient today.
--- NOTE | 2018-07-19 14:00 | NUR ---
[facility] CALLED FOR TRANSPORT TO [facility]
--- NOTE | 2018-07-19 14:11 | NUR ---
REPORT CALLED TO [facility] TO NURSE JOVANNI
--- NOTE | 2018-07-19 14:13 | NUR ---
IV DC, SITE WITHOUT REDNESS OR SWELLING, O2 ON PER NC AT 2 LITERS, SAT 92 PERCENT, MCMILLAN PATENT POOR URINE OUTPUT, 50ML SINCE FLUID BOLUS, DR REYNOSO NOTIFIED AND NO NEW ORDERS
--- NOTE | 2018-07-19 14:25 | NUR ---
DISMISSED PER AMBULANCE TO [facility]
--- NOTE | 2018-07-19 14:27 | NUR ---
ROSALIE ALVAREZ I discharged to [facility]. SON notified of discharge and report given to NURSE BAIG. ROSALIE ALVAREZ I belongings sent with PATIENT. Skin dry and intact; no breakdown noted. ROSALIE ALVAREZ I discharged with Villalobos catheter AND OXYGEN AT 2 LITERS, Vital signs are stable at time of discharge. Condition is stable at time of discharge. Discharge instructions and copies of H&P, discharge summary, physician's order, lab reports, consultation reports, other dictated reports, diagnostic imaging reports, Advance Directive, eMAR, vital signs, intake and output sent with PATIENT. Patient discharged from [facility] on 07/19/18 at 1430. ROSALIE ALVAREZ I left floor via AMBULANCE, accompanied by [facility]. ROSALIE ALVAREZ I and family/DPOA notified and verbalize understanding of discharge to [facility].
[2018-07-19 14:42] VITALS: BP 137/55
== END 2018-07-19 14:45 | disposition hospice, inpatient (51) | DRG 684 ==
LOC: EDUNIT# 08:44 → ER FS 08:47 → 4TH 14:08
PROVIDERS: ADMIT Internal Medicine; ATTEND Internal Medicine
DX: N17.9 Acute kidney failure, unspecified (principal); E86.0 Dehydration; I12.9 Hypertensive chronic kidney disease with stage 1 through stage 4 chronic kidney disease, or unspecified chronic kidney disease; N18.9 Chronic kidney disease, unspecified; D64.9 Anemia, unspecified; E11.9 Type 2 diabetes mellitus without complications; Z66 Do not resuscitate; Z51.5 Encounter for palliative care; E78.00 Pure hypercholesterolemia, unspecified; K21.9 Gastro-esophageal reflux disease without esophagitis; M19.91 Primary osteoarthritis, unspecified site; G20 Parkinson's disease; F02.80 Dementia in other diseases classified elsewhere, unspecified severity, without behavioral disturbance, psychotic disturbance, mood disturbance, and anxiety; R41.0 Disorientation, unspecified; R34 Anuria and oliguria
CPT/HCPCS: 36415; 70450; 71045; 80048; 80053; 81000; 83605; 84484; 85007; 85025; 85027; 85610; 85730; 87040; 87804; 94640; 94760; 96361; 96374